=== PATIENT | female | born 1985 | race Caucasian/White ===

== ENCOUNTER 2022-09-20 08:05 | Inpatient (IN) ==
--- NOTE | 2022-09-20 08:30 | Emergency Department Note ---
History of Present Illness General Chief complaint: Groin Pain Stated complaint: CELLULITIOUS Time Seen by Provider: 09/20/22 08:15 History of Present Illness Maximum Pain Intensity: 9 Patient is a 36-year-old female with past medical history significant for ankylosing spondylitis on Cosentyx, anxiety, depression, PTSD, IBS, who returns the emergency department as advised for recheck of a suprapubic cellulitis. She was seen and evaluated by myself yesterday. She was evaluated with laboratory studies and ultrasound, which showed cellulitis, but no drainable fluid collection. She was treated with ceftriaxone and discharged on cephalexin. Patient relates that since leaving the emergency department, she has continued to alternate Tylenol and ibuprofen. She had a warm compress on the area most of the evening. She woke from sleep with more severe pain earlier this morning, she rates her discomfort a 9/10 currently. She states that the area is more swollen and that it hurts to walk. She has been nauseous. She has not documented any fevers. She has not had any vomiting. She had 1 dose of cephalexin last evening. Home Medications Medication Instructions Recorded Confirmed Type cholecalciferol (vitamin D3) 25 25 mcg PO DAILY 11/04/20 09/20/22 History mcg (1,000 unit) tablet (Vitamin D3) ferrous sulfate 325 mg (65 mg 325 mg PO DAILY 11/04/20 09/20/22 History iron) tablet (iron) multivitamin 1 tab PO DAILY 11/04/20 07/19/22 History buspirone 5 mg tablet 5 mg PO TID 04/10/21 09/20/22 History albuterol sulfate 90 mcg/actuation 2 - 3 inh inhalation Q6H #18 grams 06/17/22 09/20/22 Rx aerosol inhaler dicyclomine 10 mg capsule 10 mg PO QID 06/23/22 09/20/22 History duloxetine 20 mg capsule,delayed 80 mg PO DAILY 06/23/22 09/20/22 History release famotidine 40 mg tablet 40 mg PO DAILY 06/23/22 09/20/22 History montelukast 10 mg tablet 10 mg PO DAILY 06/23/22 07/19/22 History secukinumab 150 mg/mL subcutaneous 300 mg subcut 06/23/22 07/19/22 History syringe trazodone 100 mg tablet 100 mg PO HS 06/23/22 09/20/22 History Allergies Allergy/AdvReac Type Severity Reaction Status Date / Time amoxicillin [From Augmentin] AdvReac Intermediate Unknown Verified 07/19/22 15:00 clavulanic acid AdvReac Intermediate Unknown Verified 07/19/22 15:00 [From Augmentin] vancomycin AdvReac Intermediate Red man Verified 09/20/22 10:55 syndrome Past Med/Surg History Medical History Ankylosing spondylitis Anxiety Endometriosis Fatty liver IBS (irritable bowel syndrome) PTSD (post-traumatic stress disorder) Surgical History H/O laparoscopy H/O wisdom tooth extraction Social History Smoking Status: Never smoker Hx Alcohol Use: No Hx Substance Use: Yes Prescribed Medications: Marijuana Preferred Language: Vietnamese Communication Ability: Effective Visual Impairment: No Limitations Hearing Ability: Normal Beliefs That Will Affect Care: None marital status: Current Living Situation: Family Current Living Situation Comment: with 4 children and is deployed current occupational status: disabled Feels Safe at Home: Yes Review of Systems A total of 10 systems reviewed and were otherwise negative Physical Exam Vital Signs Vital Signs - 24 hr 09/20/22 08:13 09/20/22 09:01 09/20/22 10:00 Temperature 37.3 C Temperature Source Temporal Artery Scan Pulse Rate 118 H 99 H 85 Respiratory Rate 20 25 H 18 Respiratory Effort / Characteristics Non-Labored Respiratory Depth Normal Blood Pressure 131/81 128/85 133/81 Blood Pressure Mean 97 99 98 Pulse Oximetry 96 98 97 Oxygen Delivery Method Room Air Room Air Room Air Sepsis Recent Fever Within 48 Hours No Sepsis New/Unexplained Change in Mental Status N/A Sepsis Action Taken by Nursing No Action Required PHYSICAL EXAM: Vital Signs: Reviewed Nurse's notes. Mildly tachycardic. Afebrile. CONSTITUTIONAL: Nontoxic-appearing 36-year-old female laying on the gurney in mild distress due to discomfort. She is also mildly anxious. CARDIOVASCULAR: Regular rate and rhythm. Peripheral pulses easily palpable. RESPIRATORY: Breath sounds equal and clear to auscultation. INTEGUMENTARY: Examination of the suprapubic region on the right note swelling, erythema, warmth and induration that have increased from yesterday. She is more swollen. There is more spreading erythema toward the right groin. Still no fluctuance or pointing. There is no drainage or discharge noted. No pointing. There are some palpable enlarged nodes in the right inguinal area. There is some mild erythema in the right labia, likely dependent, as there is no swelling or tenderness there. Course Course The patient was seen and assessed as above. External medical records are reviewed. Patient returns the emergency department as advised for recheck of the suprapubic cellulitis. She is reporting worsening pain and swelling. Clinically symptoms are worsening. IV lock was initiated. Laboratory studies were collected. CBC with differential, CMP, CRP, ESR, urinalysis and test were collected. Blood cultures were not repeated as these were just obtained 24 hours ago. She was hydrated with normal saline solution, and treated with morphine and Zofran IV for pain and given ceftriaxone 2 g IV. Given her escalating symptoms, I did discuss imaging with a CT scan, she was agreeable. Laboratory studies note an elevated white count at 20,000, up from 16,000 yesterday. Inflammatory markers are both markedly elevated compared to prior, ESR 51, C-reactive protein 29. No significant electrolyte abnormalities noted. Liver functions are within normal limits. Serum test is negative. Urine microscopy is clear without signs of infection. A COVID test for admitting purposes was negative. CT scan of the abdomen and pelvis with IV contrast per my interpretation and radiology report note soft tissue infiltration in the right groin extending over the right hip and the right mons pubis, consistent with cellulitis. Trace subcutaneous fluid, but no organized fluid collection seen to indicate abscess. Reactive right inguinal lymph nodes noted. No other acute intra-abdominal pathology. Case was reviewed with attending physician, Dr. Liz. Case was also discussed with ED pharmacist, Olive Jacques, for antibiotic selection. She recommended addition of Vancomycin and Flagyl, which was ordered and started in the ED. All laboratory and diagnostic imaging studies were reviewed with the patient. She reported little relief with the initial dose of IV morphine. After review of the information above and other included data, I feel the patient would benefit from inpatient care. Discussed this with her and she was in agreement. Patient was reviewed with [facility] hospitalist service, Dr. Batista, for admission. Triage Nursing notes reviewed. Vital Signs: reviewed and remarkable for mild tachycardia, otherwise within normal limits. Prior /Outside records reviewed Differential diagnosis: Cellulitis, abscess, Darron's gangrene, folliculitis, impetigo, allergic reaction, among others. Diagnostics, as interpreted by me: ECG: none Cardiac Monitoring: none Medical decision rules: none Imaging studies: CT scan of the abdomen and pelvis with IV contrast noting sup rapubic cellulitis. Administered Medications Vancomycin HCl 1,750 mg/ (Sodium Chloride) 535 mls @ 100 mls/hr IV NOW STA Stop: 09/20/22 16:09 Last Admin: 09/20/22 11:26 Dose: 100 mls/hr Documented By: FERNANDO Morphine Sulfate (Morphine Sulfate 2 Mg/Ml Carp) 2 mg IV Q4 PRN PRN Reason: Pain Stop: 10/04/22 12:44 Last Admin: 09/20/22 12:53 Dose: 2 mg Documented By: FERNANDO Discontinued Medications Sodium Chloride (Nss 1000ml) 1,000 mls @ 999 mls/hr IV .Q1H1M MACARIO Stop: 09/20/22 09:40 Last Infusion: 09/20/22 10:16 Dose: 0 mls/hr Documented By: Admin: 09/20/22 09:07 Dose: 999 mls/hr Documented By: FERNANDO Ceftriaxone Sodium (Rocephin) 2,000 mg in 70 mls @ 140 mls/hr IV NOW STA Stop: 09/20/22 09:08 Last Infusion: 09/20/22 10:16 Dose: 0 mls/hr Documented By: Admin: 09/20/22 09:10 Dose: 140 mls/hr Documented By: FERNANDO Metronidazole (Flagyl) 500 mg in 100 mls @ 100 mls/hr IV NOW STA Stop: 09/20/22 11:47 Last Infusion: 09/20/22 12:34 Dose: 0 mls/hr Documented By: Admin: 09/20/22 11:26 Dose: 100 mls/hr Documented By: FERNANDO Ioversol (Optiray 350 100ml) 88 ml IV ONCE ONE Stop: 09/20/22 09:31 Last Admin: 09/20/22 09:30 Dose: 88 ml Documented By: NAYELY Morphine Sulfate (Morphine Sulfate 4 Mg/Ml 1 Ml Carp\Vial) 4 mg IV NOW STA Stop: 09/20/22 08:40 Last Admin: 09/20/22 09:07 Dose: 4 mg Documented By: MELISSA Ondansetron HCl (Ondansetron Inj 2 Mg/Ml 2 Ml Vial) 4 mg IV NOW STA Stop: 09/20/22 08:40 Last Admin: 09/20/22 09:07 Dose: 4 mg Documented By: MELISSA Medical Decision Making Differential Diagnosis Differential diagnosis: Cellulitis, abscess, Darron's gangrene, folliculitis, impetigo, allergic reaction, among others. Medical Records Attestation: I reviewed the patient's medical records. Home Medications Current Medication List: was personally reviewed by me Laboratory Data Attestation: I reviewed the patient's lab results. 09/20/22 09:08 09/20/22 09:08 Lab Results 09/20/22 09/20/22 09/20/22 Range/Units 08:58 09:08 09:08 WBC 20.06 H (4.8-10.8) K/ul RBC 4.52 (4.20-5.40) M/uL Hgb 14.2 (12.0-16.0) g/dl Hct 42.2 (37.0-47.0) % MCV 93.4 (80.0-100.0) fL MCH 31.4 (25.0-34.0) pg MCHC 33.6 (32.0-36.0) g/dL RDW Std Deviation 44.9 (36.4-46.3) fL RDW Coeff of Genaro 13.1 (11.5-14.5) % Plt Count 234 (130-400) K/uL MPV 9.4 (9.4-12.4) fL Immature Gran % (Auto) 0.6 % Neut % (Auto) 87.3 % Lymph % (Auto) 6.1 % Trigg % (Auto) 5.1 % Eos % (Auto) 0.7 % Baso % (Auto) 0.2 % Neut # (Auto) 17.51 H (1.40-6.50) K/uL Lymph # (Auto) 1.22 (1.2-3.4) K/uL Trigg # (Auto) 1.02 H (0.11-0.59) K/uL Eos # (Auto) 0.15 (0-0.50) K/uL Baso # (Auto) 0.04 (0-0.2) K/uL Immature Gran # (Auto) 0.12 (0.01-0.20) K/uL ESR 51 H (0-20) mm/hr Sodium (136-145) mmol/L Potassium (3.5-5.1) mmol/L Chloride (98-107) mmol/L Carbon Dioxide (21-32) mmol/L Anion Gap (3-11) BUN (6-23) mg/dl Creatinine (0.6-1.2) mg/dl Est Cr Clr Drug Dosing ml/min Est GFR ( Amer) ml/min Est GFR (Non-Af Amer) ml/min BUN/Creatinine Ratio (10-20) Glucose (70-99(Fasting)) mg/dl Calcium (8.5-10.1) mg/dl Total Bilirubin (0.2-1.0) mg/dl AST (13-39) U/L ALT (7-52) U/L Alkaline Phosphatase (34-104) U/L C-Reactive Protein (0-0.5) mg/dl Total Protein (6.0-8.3) gm/dl Albumin (3.4-5.0) gm/dl Globulin (2.5-4.0) gm/dl Albumin/Globulin Ratio (0.9-2) HCG, Qual (Negative) Urine Color Urine Appearance (Clear) Urine pH (4.5-7.5) Ur Specific Sen[place] (1.000-1.030) Urine Protein (Negative) Urine Glucose (UA) (Negative) Urine Ketones (Negative) Urine Blood (Negative) Urine Nitrite (Negative) Urine Bilirubin (Negative) Urine Urobilinogen (Negative) Ur Leukocyte Esterase (Negative) SARS-CoV-2, RNA, NAAT NEGATIVE (NEGATIVE) 09/20/22 09/20/22 09/20/22 Range/Units 09:08 09:08 10:22 WBC (4.8-10.8) K/ul RBC (4.20-5.40) M/uL Hgb (12.0-16.0) g/dl Hct (37.0-47.0) % MCV (80.0-100.0) fL MCH (25.0-34.0) pg MCHC (32.0-36.0) g/dL RDW Std Deviation (36.4-46.3) fL RDW Coeff of Genaro (11.5-14.5) % Plt Count (130-400) K/uL MPV (9.4-12.4) fL Immature Gran % (Auto) % Neut % (Auto) % Lymph % (Auto) % Trigg % (Auto) % Eos % (Auto) % Baso % (Auto) % Neut # (Auto) (1.40-6.50) K/uL Lymph # (Auto) (1.2-3.4) K/uL Trigg # (Auto) (0.11-0.59) K/uL Eos # (Auto) (0-0.50) K/uL Baso # (Auto) (0-0.2) K/uL Immature Gran # (Auto) (0.01-0.20) K/uL ESR (0-20) mm/hr Sodium 135 L (136-145) mmol/L Potassium 4.0 (3.5-5.1) mmol/L Chloride 105 (98-107) mmol/L Carbon Dioxide 25 (21-32) mmol/L Anion Gap 5 (3-11) BUN 12 (6-23) mg/dl Creatinine 0.80 (0.6-1.2) mg/dl Est Cr Clr Drug Dosing 107.7 ml/min Est GFR ( Amer) 110.7 ml/min Est GFR (Non-Af Amer) 95.5 ml/min BUN/Creatinine Ratio 15.0 (10-20) Glucose 129 H (70-99(Fasting)) mg/dl Calcium 10.0 (8.5-10.1) mg/dl Total Bilirubin 1.1 H (0.2-1.0) mg/dl AST 11 L (13-39) U/L ALT 9 (7-52) U/L Alkaline Phosphatase 75 (34-104) U/L C-Reactive Protein 29.14 H (0-0.5) mg/dl Total Protein 7.6 (6.0-8.3) gm/dl Albumin 4.2 (3.4-5.0) gm/dl Globulin 3.4 (2.5-4.0) gm/dl Albumin/Globulin Ratio 1.2 (0.9-2) HCG, Qual Negative (Negative) Urine Color Yellow Urine Appearance Clear (Clear) Urine pH 6.5 (4.5-7.5) Ur Specific Sen[place] > 1.045 H (1.000-1.030) Urine Protein Negative (Negative) Urine Glucose (UA) Negative (Negative) Urine Ketones Trace H (Negative) Urine Blood Negative (Negative) Urine Nitrite Negative (Negative) Urine Bilirubin Negative (Negative) Urine Urobilinogen Negative (Negative) Ur Leukocyte Esterase Negative (Negative) SARS-CoV-2, RNA, NAAT (NEGATIVE) Imaging Data Attestation: I personally reviewed and interpreted this imaging study as follows: Radiologist's Impression: Abdomen/Pelvis CT 09/20/22 08:39 CT SCAN OF THE ABDOMEN AND PELVIS WITH IV CONTRAST CLINICAL HISTORY: Suprapubic cellulitis. COMPARISON STUDY: Abdominal CT dated 11/06/2020. TECHNIQUE: Following the IV administration of 88 cc of Optiray 350, CT scan of the abdomen and pelvis is performed from the lung bases to the proximal femora. Images are reviewed in the axial, sagittal, and coronal planes. IV contrast was administered without complication. A dose lowering technique was utilized adhering to the principles of ALARA. CT DOSE: 1094.13 mGycm FINDINGS: Lung bases: The heart is normal in size and without pericardial effusion. The lung bases are clear. Liver: The contrast-enhanced liver is normal in size, contour, and attenuation. There is no intrahepatic biliary ductal dilatation. The hepatic veins and portal veins are patent. Gallbladder: Unremarkable. Spleen: Normal in size and attenuation. Pancreas: Unremarkable. Adrenal glands: Unremarkable. Kidneys: The contrast enhanced kidneys are normal in size and without hydronephrosis. The kidneys enhance symmetrically. A retroaortic left renal vein is incidentally noted. Abdominal vasculature: The abdominal aorta is normal in course and caliber. Bowel: There is mild colonic fecal retention. No bowel obstruction is seen. The appendix is well-visualized and normal. Peritoneum: There is no intraperitoneal free air or abdominal ascites. There is a fat-containing umbilical hernia. Lymphadenopathy: None. Pelvic viscera: The bladder is decompressed and not well assessed. The uterus is normal as visualized noting an intrauterine device in place. There are bilateral ovarian follicles. Skeletal structures: No lytic or blastic lesions are seen. Soft tissues: There is soft tissue infiltration identified in the right groin extending superiorly over the right hip and inferiorly into the right mons pubis. There is trace subcutaneous fluid. No organized fluid collection is seen to indicate abscess. Prominent right humeral lymph nodes measure up to 1.6 cm in length. These are likely reactive. IMPRESSION: 1. Subcutaneous soft tissue inflammation centered in the right groin as detailed above is typical for cellulitis. No organized fluid collection is seen to indicate abscess. 2. No additional infectious or inflammatory findings are seen in the abdomen or pelvis. ACT 112: Negative or not required by law. Electronically signed by: José Andres M.D. 09/20/2022 9:48 AM MDM Narrative See ED Course. Impression & Plan Cellulitis of suprapubic region, Immunocompromised state due to drug therapy Discharge Plan Visit Data Chief Complaint: Groin Pain Stated Complaint: CELLULITIOUS ED Provider: Vinicio Liz ED Midlevel Provider: Akira Abbott Discharge Problem: Cellulitis of suprapubic region, Immunocompromised state due to drug therapy Patient Disposition: Being Evaluated by Hospitalist Discharge Instructions Interventions: ED Discharge Assessment Last Done: 09/20/22 13:49
[2022-09-20] MEDS ORDERED: cefTRIAXone SODIUM 2,000 MG/70 ML BAG IV STA (08:39)
[2022-09-20] MEDS ORDERED: ONDANSETRON INJ 2 MG/ML 2 ML VIAL IV STA (08:39)
[2022-09-20] MEDS ORDERED: MoRPHine SULFATE 4 MG/ML 1 ML CARP\\VIAL IV STA (08:39)
[2022-09-20] MEDS ORDERED: SODIUM CHLORIDE 0.9% 1000ML 1,000 ML IV SCH (08:40)
[2022-09-20 09:24] LABS: Basophils # (auto) 0.04 K/uL (0-0.2); Basophils % (auto) 0.2 %; Eosinophils # (auto) 0.15 K/uL (0-0.50); Eosinophils % (auto) 0.7 %; Hematocrit (blood only) 42.2 % (37.0-47.0); Hemoglobin 14.2 g/dl (12.0-16.0); Immature Granulocytes # (auto) 0.12 K/uL (0.01-0.20); Immature Granulocytes % (auto) 0.6 %; Lymphocytes # (auto) 1.22 K/uL (1.2-3.4); Lymphocytes % (auto) 6.1 %; Mean Corpuscular Hemoglobin 31.4 pg (25.0-34.0); Mean Corpuscular Hgb Conc 33.6 g/dL (32.0-36.0); Mean Corpuscular Volume 93.4 fL (80.0-100.0); Mean Platelet Volume 9.4 fL (9.4-12.4); Monocytes # (auto) 1.02 K/uL (0.11-0.59); Monocytes % (auto) 5.1 %; Neutrophils # (auto) 17.51 K/uL (1.40-6.50); Neutrophils % (auto) 87.3 %; Platelet Count 234 K/uL (130-400); RDW Coefficient of Variation 13.1 % (11.5-14.5); RDW Standard Deviation 44.9 fL (36.4-46.3); Red Blood Count 4.52 M/uL (4.20-5.40); White Blood Count 20.06 K/ul (4.8-10.8)
[2022-09-20] MEDS ORDERED: OPTIRAY 350 100ml IV ONE (09:30)
[2022-09-20 09:44] LABS: Albumin Globulin Ratio 1.2 (0.9-2); Albumin Level 4.2 gm/dl (3.4-5.0); Bilirubin,Total 1.1 mg/dl (0.2-1.0); C Reactive Protein 29.14 mg/dl (0-0.5); Creatinine Clr Calc Pharmacy 107.7 ml/min; Est GFR (African American) 110.7 ml/min; Est GFR (Non-African American) 95.5 ml/min; Globulin 3.4 gm/dl (2.5-4.0); Total Protein 7.6 gm/dl (6.0-8.3)
--- NOTE | 2022-09-20 09:50 | CT Scan Report ---
CT SCAN OF THE ABDOMEN AND PELVIS WITH IV CONTRAST CLINICAL HISTORY: Suprapubic cellulitis. COMPARISON STUDY: Abdominal CT dated 11/06/2020. TECHNIQUE: Following the IV administration of 88 cc of Optiray 350, CT scan of the abdomen and pelvi s is performed from the lung bases to the proximal femora. Images are reviewed in the axial, sagittal , and coronal planes. IV contrast was administered without complication. A dose lowering technique wa s utilized adhering to the principles of ALARA. CT DOSE: 1094.13 mGycm FINDINGS: Lung bases: The heart is normal in size and without pericardial effusion. The lung bases are clear. Liver: The contrast-enhanced liver is normal in size, contour, and attenuation. There is no intrahepa tic biliary ductal dilatation. The hepatic veins and portal veins are patent. Gallbladder: Unremarkable. Spleen: Normal in size and attenuation. Pancreas: Unremarkable. Adrenal glands: Unremarkable. Kidneys: The contrast enhanced kidneys are normal in size and without hydronephrosis. The kidneys enh ance symmetrically. A retroaortic left renal vein is incidentally noted. Abdominal vasculature: The abdominal aorta is normal in course and caliber. Bowel: There is mild colonic fecal retention. No bowel obstruction is seen. The appendix is well-vis ualized and normal. Peritoneum: There is no intraperitoneal free air or abdominal ascites. There is a fat-containing umbi lical hernia. Lymphadenopathy: None. Pelvic viscera: The bladder is decompressed and not well assessed. The uterus is normal as visualized noting an intrauterine device in place. There are bilateral ovarian follicles. Skeletal structures: No lytic or blastic lesions are seen. Soft tissues: There is soft tissue infiltration identified in the right groin extending superiorly ov er the right hip and inferiorly into the right mons pubis. There is trace subcutaneous fluid. No orga nized fluid collection is seen to indicate abscess. Prominent right humeral lymph nodes measure up to 1.6 cm in length. These are likely reactive. IMPRESSION: 1. Subcutaneous soft tissue inflammation centered in the right groin as detailed above is typical for cellulitis. No organized fluid collection is seen to indicate abscess. 2. No additional infectious or inflammatory findings are seen in the abdomen or pelvis. ACT 112: Negative or not required by law. Electronically signed by: José Andres M.D. 09/20/2022 9:48 AM
[2022-09-20 10:05] LABS: Pregnancy Test, Serum Negative (Negative)
--- NOTE | 2022-09-20 10:34 | History & Physical Report ---
Date of Service September 20, 2022 Assessment & Plan (1) Cellulitis of suprapubic region: Plan: Suprapubic cellulitis Patient received empiric Rocephin in ER 09/19/2022, return to for evaluation with expanding erythema, rapidly elevating white blood cell count, a nd rapidly increasing CRP Patient is with some immune compromise as she takes secukinumab for ankylosing spondylitis, generally gets infections around twice a year with no history of resistant infections to her knowledge. Had last secukinumab injection Monday (4 days prior to admission), small area she initially thought was an ingrown hair started to develop 3 days ago, and then rapidly worsened We will add adjunct Flagyl for anaerobic coverage and vancomycin. No history of Pseudomonas. Trend CRP/leukocytosis. Discussed with pharmacy Patient with history of red man reaction due to rapid Vanco push during with urgent labor, but reports that she is aware that this was a rate related transfusion reaction not a true allergy CT: Consistent with suprapubic cellulitis. No evidence of gas, deep tissue plane involvement, or abscess. CRP: 29, ESR 51, leukocytosis increasing to 20 on admission Trend daily (2) Immunocompromised state due to drug therapy: Plan: Received last injection of secukinumab 4 days ago, no additional dose due at this time and would hold while treating for active infection (3) PTSD (post-traumatic stress disorder): Plan: Reports anxiety/depression well controlled at time of admission (4) Anxiety: Plan: Continue BuSpar, duloxetine, trazodone at bedtime (5) Ankylosing spondylitis: Plan: Biologic health as noted (6) Fatty liver: Plan: No transaminitis on admission. Patient reports hereditary Gómez, avoids alcohol and follows with outpatient labs. No decompensation, no acute change in management at this time (7) IBS (irritable bowel syndrome): Plan: No acute exacerbation, no acute management at this time Plan DVT prophylaxis: Low risk, SCDs Diet: No surgical intervention planned at this time, regular diet Disposition: Medical/surgical CODE STATUS: Full code History of Present Illness Primary Care Provider: DARSHANA Salvador is a 36-year-old female with a past medical history of ankylosing spondylitis, PTSD, fatty liver, and IBS who is on secukinumab last taken on Monday who presented to the ER 1 day prior to admission with suprapubic cellulitis. Patient did prefer discharge home and asked for children, was treated with 1 dose of Rocephin with instructions to return for reevaluation 09/20. On ER reevaluation despite IV antibiotic treatment with Rocephin patient has had a rapidly increasing CRP, elevated white blood cell count, and clin ically worsening cellulitis. CT was obtained which does not show any evidence of organized fluid collection/abscess/gas. Subcutaneous tissue inflammation is centered at the right groin typical for cellulitis on CT which was performed with contrast. Based on failure to improve and clinical and biomarker worsening over 24 hours patient has been recommended for admission and treatment of worsening cellulitis failing conservative outpatient treatment. Patient is penicillin allergic and cannot tolerate Augmentin. 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 Ingrown hair next day seemed to swell up ~2cm area of redness/swelling, Monday size of first area of swelling, came in Monday as noted for treatment. 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 Has outpatient surveillance, avoids alcohol Medical History: Reviewed Medications: Reviewed. PCN allergy. "slammed through vanco during labor and had red man" Surgical History: Reviewed Allergies: Reviewed Social History: No tobacco use, no alcohol use. Code Status: Full Code Allergies Allergy/AdvReac Type Severity Reaction Status Date / Time amoxicillin [From Augmentin] AdvReac Intermediate Unknown Verified 07/19/22 15:00 clavulanic acid AdvReac Intermediate Unknown Verified 07/19/22 15:00 [From Augmentin] vancomycin AdvReac Intermediate Red man Verified 09/20/22 10:55 syndrome Home Medications Medication Instructions Recorded Confirmed Type cholecalciferol (vitamin D3) 25 25 mcg PO DAILY 11/04/20 07/19/22 History mcg (1,000 unit) tablet (Vitamin D3) ferrous sulfate 325 mg (65 mg 325 mg PO DAILY 11/04/20 07/19/22 History iron) tablet (iron) multivitamin 1 tab PO DAILY 11/04/20 07/19/22 History buspirone 5 mg tablet 5 mg PO TID 04/10/21 07/19/22 History albuterol sulfate 90 mcg/actuation 2 - 3 inh inhalation Q6H #18 grams 06/17/22 07/19/22 Rx aerosol inhaler dicyclomine 10 mg capsule 10 mg PO QID 06/23/22 07/19/22 History duloxetine 20 mg capsule,delayed 80 mg PO DAILY 06/23/22 07/19/22 History release famotidine 40 mg tablet 40 mg PO DAILY 06/23/22 07/19/22 History montelukast 10 mg tablet 10 mg PO DAILY 06/23/22 07/19/22 History secukinumab 150 mg/mL subcutaneous 300 mg subcut 06/23/22 07/19/22 History syringe trazodone 100 mg tablet 100 mg PO DAILY 06/23/22 07/19/22 History cephalexin 500 mg capsule 500 mg PO QID 10 days #40 caps 09/19/22 Rx Past Med/Surg History Medical History Ankylosing spondylitis Anxiety Endometriosis Fatty liver IBS (irritable bowel syndrome) PTSD (post-traumatic stress disorder) Surgical History H/O laparoscopy H/O wisdom tooth extraction Social History Smoking Status: Never smoker Hx Alcohol Use: No Hx Substance Use: Yes Prescribed Medications: Marijuana Preferred Language: Kinyarwanda Communication Ability: Effective Visual Impairment: No Limitations Hearing Ability: Normal Beliefs That Will Affect Care: None marital status: Current Living Situation: Family Current Living Situation Comment: with 4 children and is deployed current occupational status: disabled Feels Safe at Home: Yes Review of Systems Review of Systems: All systems reviewed & are unremarkable except as noted in HPI & below Physical Exam Physical Exam: General: A&Ox3. NAD. Cooperative. HEENT: Atraumatic, normocephalic. Vision/hearing intact Pulm: CTAB A&P. -wheezes, -rales, -rhonchi. Symmetrical chest rise. No increased work of breathing. No respiratory distress. Cardiac: RRR, -mrg. Radial pulses intact and symmetrical. Abdominal: Nontender, nondistended, soft. BS present. : Suprapubic skin with focal 8 x 8 cm area of firmness, erythema, warmth, tenderness with lateral erythema extending out an additional 7 cm with minimal underlying firmness, swelling. Area marked with surgical pen and dated/timed. No areas of fluctuance. No purulence/discharge. Prominently/exquisitely tender to palpation Extremities: Warm, dry, no edema Results & Data Results & Data ([facility]) Vital Signs (Past 12 Hours) Vital Signs Temp Pulse Resp BP Pulse Ox O2 Del Method 09/20/22 10:00 85 18 133/81 97 Room Air 09/20/22 09:01 99 H 25 H 128/85 98 Room Air 09/20/22 08:13 37.3 C 118 H 20 131/81 96 Room Air PG Care Time/CCT Total # of Minutes Spent Total Time Spent with Patient: Total time spent is greater than 50% in coordination of care (as documented) at patient's floor/unit and/or counseling patient: Coding Level of Care Code 50911 INT INP/OBS CARE 2/55MIN Diagnoses Cellulitis of suprapubic region L03.319 Immunocompromised state due to drug therapy D84.821; Z79.899 PTSD (post-traumatic stress disorder) F43.10 Anxiety F41.9 Ankylosing spondylitis M45.9 Fatty liver K76.0 IBS (irritable bowel syndrome) K58.9
[2022-09-20 10:39] LABS: Appearance Urine Clear (Clear); Bilirubin Urine Negative (Negative); Blood Urine Negative (Negative); Color Urine Yellow; Glucose Urine UA Negative (Negative); Ketones Urine Trace (Negative); Leukocyte Esterase Urine Negative (Negative); Nitrite Urine Negative (Negative); Protein Urine Negative (Negative); Specific Gravity Urine > 1.045 (1.000-1.030); Urobilinogen Urine Negative (Negative); pH Urine 6.5 (4.5-7.5)
[2022-09-20] MEDS ORDERED: metroNIDAZOLE 500 MG/100 ML BAG IV STA (10:48)
[2022-09-20] MEDS ORDERED: VANCOMYCIN HCL 1,750 MG in SODIUM CHLORIDE 0.9% 500 ML IV STA (10:49)
[2022-09-20] MEDS: MoRPHine SULFATE 2 MG/ML CARP IV PRN ×2 (12:53→18:13)
[2022-09-20] MEDS ORDERED: ALBUTEROL HFA 8 GM INHALER INH PRN (13:48)
[2022-09-20] MEDS ORDERED: VANCOMYCIN CONSULT ACTIVE PRN (13:48)
[2022-09-20] MEDS ORDERED: ACETAMINOPHEN 325 MG TAB PO PRN (13:48)
[2022-09-20] MEDS ORDERED: IBUPROFEN 200 MG TAB PO PRN (13:48)
--- NOTE | 2022-09-20 14:37 | Pharmacy Report ---
Pharmacy Vanc AUC Short Note - Date of Service September 20, 2022 - Assessment & Plan Assessment * 36 year old F receiving VANCOMYCIN + CEFTRIAXONE + METRONIDAZOLE for treatment of suprapubic cellulitis (without abscess). * Pertinent microbiologic data includes: BLCXs x 2 pending * Patient reported to be immunocompromised due to use of secukinumab for ankylosing spondylitis. No prior h/o of MRSA or pseudomonas colonization or infection. Plan Vancomycin * History of histamine/flushing reaction to rapid infusion of vancomycin in the past * AUC/ISHA is the preferred PK/PD target for vancomycin * AUC guided dosing is effective and associated with decreased risk of nephrotoxicity compared to traditional trough targets * 1750mg IV load x 1, followed by maint dose of 1250mg IV Q 12 hrs * This main dose is predicted to achieve target AUC/ISHA of 400-600 mg/L.hr and may be associated with a ~10 % risk of nephrotoxicity * Will check trough level with 2nd or 3rd maint dose is therapy to continue Pharmacy will continue to follow and will adjust dose/frequency as necessary. Thank you.
[2022-09-20] MEDS: busPIRone 5 MG TAB PO SCH ×2 (15:45→22:26)
[2022-09-20] MEDS: DICYCLOMINE HCL 10 MG CAP PO SCH ×3 (15:45→22:27)
[2022-09-20] MEDS ORDERED: HYDROmorphone INJ 0.5 MG/0.5 ML SYR IV STA (18:55)
[2022-09-20] MEDS ORDERED: oxyCODONE HCL IR 5 MG TAB (IMMEDIATE RELEASE) PO STA (21:48)
[2022-09-20] MEDS: metroNIDAZOLE 500 MG/100 ML BAG IV SCH (22:00)
[2022-09-20] MEDS: VANCOMYCIN HCL 1,250 MG in SODIUM CHLORIDE 0.9% 250 ML IV SCH (22:19)
[2022-09-20] MEDS: traZODone HCL 100 MG TAB PO SCH (22:27)
[2022-09-20] MEDS: DULoxetine HCL 20 MG CAP PO SCH (22:28)
[2022-09-20] MEDS ORDERED: VANCOMYCIN HCL 1,500 MG in SODIUM CHLORIDE 0.9% 500 ML IV SCH (23:30)
[2022-09-21] MEDS: metroNIDAZOLE 500 MG/100 ML BAG IV SCH ×3 (03:32→20:55)
[2022-09-21] MEDS: MoRPHine SULFATE 2 MG/ML CARP IV PRN ×5 (03:35→21:34)
--- NOTE | 2022-09-21 07:21 | Hospitalist Progress Note ---
Date of Service September 21, 2022 Assessment & Plan (1) Cellulitis of suprapubic region: Plan: acute moderate risk Suprapubic cellulitis Patient received empiric Rocephin in ER 09/19/2022, return 09/20/22 for evaluation with expanding erythema, rapidly elevating white blood cell count, and rapidly increasing CRP Patient is with some immune compromise as she takes secukinumab for ankylosing spondylitis, generally gets infections around twice a year with no history of resistant infections to her knowledge. Had last secukinumab injection 09/16/22 Flagyl and vancomycin. No history of Pseudomonas. Did have staph infection in the past which was resistant to clindamycin CT: Consistent with suprapubic cellulitis. No evidence of gas, deep tissue plane involvement, or abscess. Soft tissue ultrasound on 09/21 again without abscess formation (2) Immunocompromised state due to drug therapy: Plan: chronic and stable, treatment for ankylosing spondylitis Received last injection of secukinumab 4 days prior to admission, no additional dose due at this time and would hold while treating for active infection (3) PTSD (post-traumatic stress disorder): Plan: Reports anxiety/depression well controlled at time of admission (4) Anxiety: Plan: Continue BuSpar, duloxetine, trazodone at bedtime Plan DVT prophylaxis: Low risk, SCDs CODE STATUS: Full code Admission and Anticipated Discharge Date Admission Date: September 20, 2022 Subjective Patient's had some interval improvement in her discomfort however has more of a focus swelling with concern for abscess formation this was later not proven by ultrasound report. She does feel better Physical Exam Physical Exam: Examination shows her to have erythema in the mons pubic area with more light tender indurated area towards the right side. This is approximately 6 x 3 cm of induration and surrounding cellulitic change Results & Data Results & Data ([facility]) Vital Signs (Past 12 Hours) Vital Signs Temp Pulse Pulse Resp BP Pulse Ox O2 Del Method 09/20/22 22:30 Room Air 09/20/22 22:30 Room Air 09/20/22 19:40 97.9 F 88 18 141/89 H 97 Room Air 09/20/22 19:22 95 H 97 Room Air Laboratory Results Reviewed CBC Reviewed chemistry Diagnostic Findings Ultrasound of soft tissue did not confirm any loculations or abscess formation PG Care Time/CCT Total # of Minutes Spent Total Time Spent with Patient: Total time spent is greater than 50% in coordination of care (as documented) at patient's floor/unit and/or counseling patient: Coding Level of Care Code 97302 SUB INP/OBS CARE MIN Diagnoses Cellulitis of suprapubic region L03.319 Immunocompromised state due to drug therapy D84.821; Z79.899 PTSD (post-traumatic stress disorder) F43.10 Anxiety F41.9
[2022-09-21] MEDS: VANCOMYCIN HCL 1,250 MG in SODIUM CHLORIDE 0.9% 250 ML IV SCH ×2 (07:56→20:55)
[2022-09-21] MEDS: DICYCLOMINE HCL 10 MG CAP PO SCH ×4 (08:02→21:29)
[2022-09-21] MEDS: busPIRone 5 MG TAB PO SCH ×3 (08:02→21:28)
[2022-09-21] MEDS: FAMOTIDINE 40 MG TABLET PO SCH (08:03)
[2022-09-21] MEDS: CHOLECALCIFEROL 1,000 UNITS 25 MCG TAB PO SCH (08:03)
[2022-09-21] MEDS: MONTELUKAST SODIUM 10 MG TABLET PO SCH (08:03)
[2022-09-21] MEDS ORDERED: DULoxetine HCL 20 MG CAP PO SCH (09:00)
[2022-09-21] MEDS ORDERED: ACETAMINOPHEN 500 MG TAB PO PRN (10:43)
[2022-09-21] MEDS: oxyCODONE HCL IR 5 MG TAB (IMMEDIATE RELEASE) PO PRN ×2 (11:24→18:46)
[2022-09-21 11:30] LABS: Basophils # (auto) 0.06 K/uL (0-0.2); Basophils % (auto) 0.5 %; Eosinophils % (auto) 2.3 %; Hematocrit (blood only) 36.4 % (37.0-47.0); Hemoglobin 12.1 g/dl (12.0-16.0); Immature Granulocytes # (auto) 0.05 K/uL (0.01-0.20); Immature Granulocytes % (auto) 0.4 %; Lymphocytes # (auto) 1.67 K/uL (1.2-3.4); Mean Corpuscular Hemoglobin 31.2 pg (25.0-34.0); Mean Corpuscular Hgb Conc 33.2 g/dL (32.0-36.0); Mean Corpuscular Volume 93.8 fL (80.0-100.0); Mean Platelet Volume 9.3 fL (9.4-12.4); Monocytes # (auto) 0.81 K/uL (0.11-0.59); Monocytes % (auto) 6.3 %; Neutrophils # (auto) 9.97 K/uL (1.40-6.50); Neutrophils % (auto) 77.5 %; Platelet Count 219 K/uL (130-400); RDW Standard Deviation 44.3 fL (36.4-46.3); Red Blood Count 3.88 M/uL (4.20-5.40); White Blood Count 12.86 K/ul (4.8-10.8)
[2022-09-21] MEDS: cefTRIAXone SODIUM 2,000 MG in DEXTROSE 5% 50 ML IV SCH (11:50)
--- NOTE | 2022-09-21 12:05 | Ultrasound Report ---
US soft tissue groin CLINICAL HISTORY: suprapubic swelling eval for drainable collection COMPARISON STUDY: Abdomen and pelvis CT 09/20/2022. Abdominal ultrasound 09/19/2022. FINDINGS: Progressive subcutaneous edema within the right suprapubic/groin soft tissues compared the prior study. No loculated fluid collections to suggest an abscess at this time. Mild right inguinal l ymphadenopathy is again noted. Echogenic subcutaneous fat consistent with a cellulitis. IMPRESSION: Progressive subcutaneous edema within the right suprapubic/groin soft tissues. No locula fili fluid collections to suggest an abscess at this time. ACT 112: Negative or not required by law. Electronically signed by: Daniel Mcclelland M.D. 09/21/2022 12:03 PM
[2022-09-21 12:11] LABS: BUN Creatinine Ratio 9.3 (10-20); Creatinine Clr Calc Pharmacy 114.6 ml/min; Est GFR (African American) 119.7 ml/min; Est GFR (Non-African American) 103.3 ml/min; Potassium 3.6 mmol/L (3.5-5.1)
[2022-09-21] MEDS: DOCUSATE SODIUM/SENNA 50/8.6MG TAB PO SCH (21:30)
[2022-09-21] MEDS: traZODone HCL 100 MG TAB PO SCH (21:31)
[2022-09-21] MEDS: DULoxetine HCL 20 MG CAP PO SCH (22:51)
[2022-09-22] MEDS: oxyCODONE HCL IR 5 MG TAB (IMMEDIATE RELEASE) PO PRN ×3 (03:46→19:36)
[2022-09-22] MEDS: metroNIDAZOLE 500 MG/100 ML BAG IV SCH ×2 (04:05→11:36)
[2022-09-22] MEDS ORDERED: VANCOMYCIN LEVEL ONE (07:00)
[2022-09-22 07:14] LABS: Hemoglobin 12.9 g/dl (12.0-16.0); Mean Corpuscular Hemoglobin 31.6 pg (25.0-34.0); Mean Corpuscular Hgb Conc 33.9 g/dL (32.0-36.0); Mean Corpuscular Volume 93.1 fL (80.0-100.0); Mean Platelet Volume 9.1 fL (9.4-12.4); Platelet Count 231 K/uL (130-400); RDW Coefficient of Variation 12.9 % (11.5-14.5); RDW Standard Deviation 44.6 fL (36.4-46.3); Red Blood Count 4.08 M/uL (4.20-5.40); White Blood Count 10.49 K/ul (4.8-10.8)
[2022-09-22 08:06] LABS: Creatinine Clr Calc Pharmacy 134.3 ml/min; Est GFR (Non-African American) 115.6 ml/min
[2022-09-22] MEDS: VANCOMYCIN HCL 1,250 MG in SODIUM CHLORIDE 0.9% 250 ML IV SCH ×3 (08:35→23:39)
[2022-09-22] MEDS: busPIRone 5 MG TAB PO SCH ×3 (08:36→19:37)
[2022-09-22] MEDS: DICYCLOMINE HCL 10 MG CAP PO SCH ×4 (08:36→19:37)
[2022-09-22] MEDS: CHOLECALCIFEROL 1,000 UNITS 25 MCG TAB PO SCH (08:36)
[2022-09-22] MEDS: DOCUSATE SODIUM/SENNA 50/8.6MG TAB PO SCH ×2 (08:37→19:38)
[2022-09-22] MEDS: PSYLLIUM or GUAR GUM FIBER POWDER PACKET PO SCH (08:37)
[2022-09-22] MEDS: MONTELUKAST SODIUM 10 MG TABLET PO SCH (08:37)
[2022-09-22] MEDS: FAMOTIDINE 40 MG TABLET PO SCH (08:37)
[2022-09-22] MEDS: cefTRIAXone SODIUM 2,000 MG in DEXTROSE 5% 50 ML IV SCH (12:31)
--- NOTE | 2022-09-22 12:37 | Pharmacy Report ---
Pharmacy PK ABX Note - Date of Service September 22, 2022 - Assessment and Plan Assessment 36 year old F receiving Vancomycin for treatment of SSTI. Pertinent microbiologic data includes: hx of MSSA in genital cx. Patient also receiving ceftriaxone and metronidazole. Day # 3 of antimicrobial therapy. Plan Vancomycin * Today's level of 7.4 is subtherapeutic. * Increase Maintenance dose: 1250 mg IV every 8 hours * Regimen is predicted to achieve target AUC/ISHA of 400-600 mg/L.hr * Random level ordered for: 09/23/22@1400 Pharmacy will continue to follow and will adjust dose/frequency as necessary. Thank you. Pharmacy has transitioned to AUC monitoring for vancomycin. AUC/ISHA is the preferred PK/PD target and is associated with decreased risk of nephrotoxicity compared to traditional trough targets.
[2022-09-22] MEDS: MoRPHine SULFATE 2 MG/ML CARP IV PRN ×2 (16:32→23:39)
[2022-09-22] MEDS ORDERED: LIDOCAINE 2% 20 MG/ML 5 ML SYR IV ONE (17:58)
[2022-09-22] MEDS ORDERED: LIDOCAINE 2% 2 ML VIAL/AMP(20MG/ML) INFIL ONE (18:01)
--- NOTE | 2022-09-22 18:23 | Surgery Consultation ---
Date of Consultation September 22, 2022 Assessment & Plan (1) Cellulitis of suprapubic region: Area of fluctuance underwent incision and drainage at the bedside using 2% plain lidocaine See dictated note Placed some gauze within the area We did recover some serous fluid Area was cultured We will change dressing with quarter inch ribbon gauze every shift to keep the skin open History of Present Illness Attending Physician: Yovani Pastor History of Present Illness 36-year-old female admitted to the hospital with cellulitis of the right suprapubic area Currently on IV antibiotics and did develop some drainage over the last 12 hours She was admitted on 09/20/2022 Her white blood cell count has come down to normal Her antibiotics include vancomycin Flagyl ceftriaxone She is mildly immunocompromised for treatment for ankylosing spondylitis Allergies Allergy/AdvReac Type Severity Reaction Status Date / Time amoxicillin [From Augmentin] AdvReac Intermediate Unknown Verified 07/19/22 15:00 clavulanic acid AdvReac Intermediate Unknown Verified 07/19/22 15:00 [From Augmentin] vancomycin AdvReac Intermediate Red man Verified 09/20/22 10:55 syndrome Home Medications Medication Instructions Recorded Confirmed Type cholecalciferol (vitamin D3) 25 25 mcg PO DAILY 11/04/20 09/20/22 History mcg (1,000 unit) tablet (Vitamin D3) ferrous sulfate 325 mg (65 mg 325 mg PO DAILY 11/04/20 09/20/22 History iron) tablet (iron) multivitamin 1 tab PO DAILY 11/04/20 09/21/22 History buspirone 5 mg tablet 5 mg PO TID 04/10/21 09/20/22 History albuterol sulfate 90 mcg/actuation 2 - 3 inh inhalation Q6H #18 grams 06/17/22 09/20/22 Rx aerosol inhaler dicyclomine 10 mg capsule 10 mg PO QID 06/23/22 09/20/22 History duloxetine 20 mg capsule,delayed 80 mg PO DAILY 06/23/22 09/20/22 History release famotidine 40 mg tablet 40 mg PO DAILY 06/23/22 09/20/22 History montelukast 10 mg tablet 10 mg PO DAILY 06/23/22 09/21/22 History secukinumab 150 mg/mL subcutaneous 300 mg subcut Q1-2M 06/23/22 09/21/22 History syringe trazodone 100 mg tablet 100 mg PO HS 06/23/22 09/20/22 History Patient History Medical History Ankylosing spondylitis Anxiety Endometriosis Fatty liver IBS (irritable bowel syndrome) PTSD (post-traumatic stress disorder) Surgical History H/O laparoscopy H/O wisdom tooth extraction Social History Smoking Status: Never smoker Second Hand Exposure: No; Do You Dip or Chew Tobacco: No; Tobacco Cessation Education Requested by Patient: No Hx Alcohol Use: No Hx Substance Use: Yes (Medicinal, use the dropper.) Prescribed Medications: Marijuana Last Used Substance: Days (ago) Last Used Substance Other:: Yesterday before bed. Used to help sleep. Preferred Language: Guamanian Communication Ability: Effective Visual Impairment: No Limitations Hearing Ability: Normal Sort Manager Required: No Beliefs That Will Affect Care: None marital status: Current Living Situation: Family Current Living Situation Comment: Home with family. current occupational status: disabled Other Information That Helps Us Care for You: No Feels Safe at Home: Yes Safety Concerns: Feels Safe At This Time Assistive Devices: None Assistive Devices Comment: At home Review of Systems Review of Systems: All systems reviewed & are unremarkable except as noted in HPI & below Physical Exam Physical Exam: She does have an area of erythema in the right suprapubic area extending to the right inguinal area This has significantly improved with the markings on the skin but she does have a small area of drainage and an Area of fluctuance to the right of this-very tender Constitutional: well developed; no acute distress Eyes: + anicteric sclerae Respiratory: normal respiratory effort; no respiratory distress Cardiovascular: Rate/Rhythm: regular rate Gastrointestinal (Abdomen): See above Musculoskeletal: Head/Neck/Chest: head atraumatic Skin: no rashes, warm and dry See skin changes above Neurologic: awake Psychiatric: Orientation: alert Results & Data ([facility]) Vital Signs (Past 12 Hours) Vital Signs Temp Pulse Resp BP Pulse Ox O2 Del Method 09/22/22 15:16 36.6 C 86 18 127/85 97 Room Air 09/22/22 07:29 36.6 C 90 18 116/79 97 Room Air PG Care Time/CCT Total # of Minutes Spent Total Time Spent with Patient: Total time spent is greater than 50% in coordination of care (as documented) at patient's floor/unit and/or counseling patient: Coding Level of Care Code INP/OBS CONSULT LVL 2, 35 MIN Diagnoses Cellulitis of suprapubic region L03.319
[2022-09-22] MEDS ORDERED: clonazePAM 0.5 MG TAB PO STA (18:35)
--- NOTE | 2022-09-22 19:25 | Operative Report (OR) ---
This is a procedure at the bedside. NAME OF OPERATION: Incision and drainage of abscess. PREOPERATIVE DIAGNOSIS: Suprapubic abscess. POSTOPERATIVE DIAGNOSIS: Suprapubic abscess. STAFF SURGEON: Deondre Roy MD. ANESTHESIA: 2% plain lidocaine. DESCRIPTION OF PROCEDURE: The patient was in her bed. We prepped her suprapubic area with Betadine. I used a very small amount, less than 2 mL of 2% lidocaine to anesthetize the skin and subcutaneous tissue. I then opened the area using an 11 blade, approximately 2 cm. We did encounter some serous fluid and a small cavity. This was cultured and then packed with gauze. Dressing was applied. The patient tolerated well. It is likely we used 1 mL of 2% plain lidocaine. Job ID: [id number]
[2022-09-22] MEDS: DULoxetine HCL 20 MG CAP PO SCH (19:38)
[2022-09-22] MEDS: traZODone HCL 100 MG TAB PO SCH (19:39)
--- NOTE | 2022-09-22 20:49 | Hospitalist Progress Note ---
Date of Service September 22, 2022 Assessment & Plan (1) Cellulitis of suprapubic region: Plan: acute moderate risk Suprapubic cellulitis Patient received empiric Rocephin in ER 09/19/2022, return 09/20/22 for evaluation with expanding erythema, rapidly elevating white blood cell count, and rapidly increasing CRP Patient is with some immune compromise as she takes secukinumab for ankylosing spondylitis, generally gets infections around twice a year with no history of resistant infections to her knowledge. Had last secukinumab injection 09/16/22 Flagyl and vancomycin. No history of Pseudomonas. Did have staph infection in the past which was resistant to clindamycin CT: Consistent with suprapubic cellulitis. No evidence of gas, deep tissue plane involvement, or abscess. Soft tissue ultrasound on 09/21 again without abscess formation Given that clinically there appears to be an induration, will consult general surgery. (2) Immunocompromised state due to drug therapy: Plan: chronic and stable, treatment for ankylosing spondylitis Received last injection of secukinumab 4 days prior to admission, no additional dose due at this time and would hold while treating for active infection (3) PTSD (post-traumatic stress disorder): Plan: Reports anxiety/depression well controlled at time of admission (4) Anxiety: Plan: Continue BuSpar, duloxetine, trazodone at bedtime Plan DVT prophylaxis: Low risk, SCDs CODE STATUS: Full code Admission and Anticipated Discharge Date Admission Date: September 20, 2022 Subjective Patient reports her cellulitis has improved Review of Systems Review of Systems: All systems reviewed & are unremarkable except as noted in HPI & below Physical Exam Physical Exam: Examination shows her to have erythema in the mons pubic area with more light tender indurated area towards the right side. This is approximately 6 x 3 cm of induration and surrounding cellulitic change. (No change on 09/22 Results & Data Results & Data ([facility]) Vital Signs (Past 12 Hours) Vital Signs Temp Pulse Resp BP Pulse Ox O2 Del Method 09/22/22 15:16 36.6 C 86 18 127/85 97 Room Air PG Care Time/CCT Total # of Minutes Spent Total Time Spent with Patient: Total time spent is greater than 50% in coordination of care (as documented) at patient's floor/unit and/or counseling patient: Coding Level of Care Code 03980 SUB INP/OBS CARE MIN Diagnoses Cellulitis of suprapubic region L03.319 Immunocompromised state due to drug therapy D84.821; Z79.899 PTSD (post-traumatic stress disorder) F43.10 Anxiety F41.9
[2022-09-23] MEDS: oxyCODONE HCL IR 5 MG TAB (IMMEDIATE RELEASE) PO PRN ×4 (00:57→19:40)
[2022-09-23] MEDS: VANCOMYCIN HCL 1,250 MG in SODIUM CHLORIDE 0.9% 250 ML IV SCH ×2 (08:03→16:54)
[2022-09-23] MEDS: DOCUSATE SODIUM/SENNA 50/8.6MG TAB PO SCH ×2 (08:09→19:41)
[2022-09-23] MEDS: FAMOTIDINE 40 MG TABLET PO SCH (08:09)
[2022-09-23] MEDS: MONTELUKAST SODIUM 10 MG TABLET PO SCH (08:09)
[2022-09-23] MEDS: CHOLECALCIFEROL 1,000 UNITS 25 MCG TAB PO SCH (08:09)
[2022-09-23] MEDS: DICYCLOMINE HCL 10 MG CAP PO SCH ×4 (08:10→19:41)
[2022-09-23] MEDS: busPIRone 5 MG TAB PO SCH ×3 (08:11→19:40)
[2022-09-23] MEDS: PSYLLIUM or GUAR GUM FIBER POWDER PACKET PO SCH (08:11)
[2022-09-23 08:49] LABS: BUN Creatinine Ratio 14.5 (10-20); Basophils # (auto) 0.06 K/uL (0-0.2); Basophils % (auto) 0.9 %; C Reactive Protein 8.06 mg/dl (0-0.5); Calcium 8.7 mg/dl (8.5-10.1); Creatinine Clr Calc Pharmacy 124.6 ml/min; Eosinophils # (auto) 0.35 K/uL (0-0.50); Eosinophils % (auto) 5.3 %; Est GFR (African American) 130.7 ml/min; Est GFR (Non-African American) 112.8 ml/min; Hematocrit (blood only) 38.8 % (37.0-47.0); Hemoglobin 12.9 g/dl (12.0-16.0); Immature Granulocytes # (auto) 0.03 K/uL (0.01-0.20); Immature Granulocytes % (auto) 0.5 %; Lymphocytes # (auto) 2.02 K/uL (1.2-3.4); Lymphocytes % (auto) 30.7 %; Mean Corpuscular Hemoglobin 31.3 pg (25.0-34.0); Mean Corpuscular Hgb Conc 33.2 g/dL (32.0-36.0); Mean Corpuscular Volume 94.2 fL (80.0-100.0); Mean Platelet Volume 9.4 fL (9.4-12.4); Monocytes # (auto) 0.57 K/uL (0.11-0.59); Monocytes % (auto) 8.7 %; Neutrophils # (auto) 3.54 K/uL (1.40-6.50); Neutrophils % (auto) 53.9 %; Platelet Count 271 K/uL (130-400); Potassium 3.9 mmol/L (3.5-5.1); RDW Coefficient of Variation 12.8 % (11.5-14.5); RDW Standard Deviation 44.3 fL (36.4-46.3); Red Blood Count 4.12 M/uL (4.20-5.40); White Blood Count 6.57 K/ul (4.8-10.8)
[2022-09-23] MEDS: MoRPHine SULFATE 2 MG/ML CARP IV PRN ×2 (10:10→22:47)
--- NOTE | 2022-09-23 11:10 | Surgery Progress Note ---
Date of Service September 23, 2022 Assessment & Plan (1) History of incision and drainage: Plan: Status post I&D of suprapubic abscess Cultures are pending as far as isolation of organism Continue current antibiotics as she is improving Continue wound packing Dr. Martinez will be following over the weekend Discharge home on oral antibiotics when organism isolated Admission and Anticipated Discharge Date Admission Date: September 20, 2022 Results & Data ([facility]) Vital Signs (Past 12 Hours) Vital Signs Temp Pulse Resp BP Pulse Ox O2 Del Method 09/23/22 08:05 36.5 C 74 18 115/77 98 Room Air 09/22/22 23:18 36.6 C 69 18 135/80 97 Room Air PG Care Time/CCT Total # of Minutes Spent Total Time Spent with Patient: Total time spent is greater than 50% in coordination of care (as documented) at patient's floor/unit and/or counseling patient: Coding Level of Care Code None Diagnoses History of incision and drainage Z98.890
[2022-09-23] MEDS: cefTRIAXone SODIUM 2,000 MG in DEXTROSE 5% 50 ML IV SCH (12:18)
--- NOTE | 2022-09-23 16:54 | Pharmacy Report ---
Pharmacy PK ABX Note - Date of Service September 23, 2022 - Assessment and Plan Assessment 36 year old F receiving Vancomycin for treatment of SSTI. Pertinent microbiologic data includes: hx of MSSA in genital cx. Patient also receiving ceftriaxone. S/p I&D of suprapubic abscess- groin culture (+) Staph spp. Day # 4 of antimicrobial therapy. Plan Vancomycin * Vancomycin random level drawn this afternoon, 14.8mcg/mL (~ 6.5hr level) is predicted to achieve a steady state AUC of 497mg/L.hr -- therapeutic. * Continue vancomycin 1250mg IV q8h * Regimen is predicted to achieve target AUC/ISHA of 400-600 mg/L.hr * Will repeat a level in ~ 48hr or sooner if clinically indicated Pharmacy will continue to follow and will adjust dose/frequency as necessary. Thank you. Pharmacy has transitioned to AUC monitoring for vancomycin. AUC/ISHA is the preferred PK/PD target and is associated with decreased risk of nephrotoxicity compared to traditional trough targets.
[2022-09-23] MEDS: POLYETHYLENE (MIRALAX) 17 GM PACK PO SCH (17:00)
[2022-09-23] MEDS: traZODone HCL 100 MG TAB PO SCH (19:42)
[2022-09-23] MEDS: DULoxetine HCL 20 MG CAP PO SCH (19:42)
[2022-09-23] MEDS ORDERED: GLYCERIN ADULT 12 SUPP/BOX SUPP PR ONE (20:19)
--- NOTE | 2022-09-23 21:58 | Hospitalist Progress Note ---
Date of Service September 23, 2022 Assessment & Plan (1) Cellulitis of suprapubic region: Plan: acute moderate risk Suprapubic cellulitis Patient received empiric Rocephin in ER 09/19/2022, return 09/20/22 for evaluation with expanding erythema, rapidly elevating white blood cell count, and rapidly increasing CRP Patient is with some immune compromise as she takes secukinumab for ankylosing spondylitis, generally gets infections around twice a year with no history of resistant infections to her knowledge. Had last secukinumab injection 09/16/22 Flagyl and vancomycin. No history of Pseudomonas. Did have staph infection in the past which was resistant to clindamycin CT: Consistent with suprapubic cellulitis. No evidence of gas, deep tissue plane involvement, or abscess. Soft tissue ultrasound on 09/21 again without abscess formation Appreciate input from Gen Surgery. S/P I and D Patient appears to have improved tremendously with this. Culture though is pending. Once culture comes back, patient will likely be discharged, possibly with home nursing. (2) Immunocompromised state due to drug therapy: Plan: chronic and stable, treatment for ankylosing spondylitis Received last injection of secukinumab 4 days prior to admission, no additional dose due at this time and would hold while treating for active infection (3) PTSD (post-traumatic stress disorder): Plan: Reports anxiety/depression well controlled at time of admission (4) Anxiety: Plan: Continue BuSpar, duloxetine, trazodone at bedtime Plan DVT prophylaxis: Low risk, SCDs CODE STATUS: Full code Admission and Anticipated Discharge Date Admission Date: September 20, 2022 Subjective 36 yo female reports feeling better. She has no new complaints. Review of Systems Review of Systems: All systems reviewed & are unremarkable except as noted in HPI & below Physical Exam Physical Exam: Patient is lying in bed and in no acute distress. Examination shows her to have erythema in the mons pubic area has decreased after the I and D. Area has packing and is draining clear yellow fluid. Area is no longer indurated. Results & Data Results & Data ([facility]) Vital Signs (Past 12 Hours) Vital Signs Temp Pulse Resp BP Pulse Ox O2 Del Method 09/23/22 20:57 36.8 C 76 18 113/79 96 Room Air 09/23/22 14:56 36.6 C 70 16 133/88 99 Room Air PG Care Time/CCT Total # of Minutes Spent Total Time Spent with Patient: Total time spent is greater than 50% in coordination of care (as documented) at patient's floor/unit and/or counseling patient: Coding Level of Care Code 78796 SUB INP/OBS CARE 2/35MIN Diagnoses Cellulitis of suprapubic region L03.319 Immunocompromised state due to drug therapy D84.821; Z79.899 PTSD (post-traumatic stress disorder) F43.10 Anxiety F41.9
[2022-09-24] MEDS: VANCOMYCIN HCL 1,250 MG in SODIUM CHLORIDE 0.9% 250 ML IV SCH ×2 (00:55→08:42)
[2022-09-24 05:50] LABS: Hematocrit (blood only) 39.9 % (37.0-47.0); Hemoglobin 13.5 g/dl (12.0-16.0); Mean Corpuscular Hemoglobin 31.2 pg (25.0-34.0); Mean Corpuscular Hgb Conc 33.8 g/dL (32.0-36.0); Mean Corpuscular Volume 92.1 fL (80.0-100.0); Mean Platelet Volume 9.1 fL (9.4-12.4); Platelet Count 289 K/uL (130-400); RDW Coefficient of Variation 12.5 % (11.5-14.5); RDW Standard Deviation 42.5 fL (36.4-46.3); Red Blood Count 4.33 M/uL (4.20-5.40); White Blood Count 8.24 K/ul (4.8-10.8)
[2022-09-24 06:08] LABS: Creatinine Clr Calc Pharmacy 122.8 ml/min; Est GFR (African American) 130.1 ml/min; Est GFR (Non-African American) 112.3 ml/min
[2022-09-24] MEDS: busPIRone 5 MG TAB PO SCH ×2 (08:42→14:26)
[2022-09-24] MEDS: CHOLECALCIFEROL 1,000 UNITS 25 MCG TAB PO SCH (08:42)
[2022-09-24] MEDS: POLYETHYLENE (MIRALAX) 17 GM PACK PO SCH (08:42)
[2022-09-24] MEDS: MONTELUKAST SODIUM 10 MG TABLET PO SCH (08:42)
[2022-09-24] MEDS: FAMOTIDINE 40 MG TABLET PO SCH (08:42)
[2022-09-24] MEDS: DICYCLOMINE HCL 10 MG CAP PO SCH ×2 (08:42→12:33)
[2022-09-24] MEDS: PSYLLIUM or GUAR GUM FIBER POWDER PACKET PO SCH (08:42)
[2022-09-24] MEDS: DOCUSATE SODIUM/SENNA 50/8.6MG TAB PO SCH (08:42)
[2022-09-24] MEDS: MoRPHine SULFATE 2 MG/ML CARP IV PRN (09:20)
[2022-09-24] MEDS ORDERED: ceFAZolin 2000MG 2,000 MG/15 ML SYR IV SCH (12:00)
--- NOTE | 2022-09-29 16:22 | Discharge Summary ---
Date of Service September 24, 2022 Admission HPI Per Admitting Provider Tammie is a 36-year-old female with a past medical history of ankylosing spondylitis, PTSD, fatty liver, and IBS who is on secukinumab last taken on Monday who presented to the ER 1 day prior to admission with suprapubic cellulitis. Patient did prefer discharge home and asked for children, was treated with 1 dose of Rocephin with instructions to return for reevaluation 09/20. On ER reevaluation despite IV antibiotic treatment with Rocephin patient has had a rapidly increasing CRP, elevated white blood cell count, and clinically worsening cellulitis. CT was obtained which does not show any evidence of organized fluid collection/abscess/gas. Subcutaneous tissue inflammation is centered at the right groin typical for cellulitis on CT which was performed with contrast. Based on failure to improve and clinical and biomarker worsening over 24 hours patient has been recommended for admission and treatment of worsening cellulitis failing conservative outpatient treatment. Patient is penicillin allergic and cannot tolerate Augmentin. 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 Ingrown hair next day seemed to swell up ~2cm area of redness/swelling, Monday size of first area of swelling, came in Monday as noted for treatment. 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 Has outpatient surveillance, avoids alcohol Medical History: Reviewed Medications: Reviewed. PCN allergy. "slammed through vanco during labor and had red man" Surgical History: Reviewed Allergies: Reviewed Social History: No tobacco use, no alcohol use. Code Status: Full Code Discharge Data Allergies Allergy/AdvReac Type Severity Reaction Status Date / Time amoxicillin [From Augmentin] AdvReac Intermediate Unknown Verified 07/19/22 15:00 clavulanic acid AdvReac Intermediate Unknown Verified 07/19/22 15:00 [From Augmentin] vancomycin AdvReac Intermediate Red man Verified 09/20/22 10:55 syndrome Consultations 09/20/22 10:30 ED Decision to Admit Stat 09/22/22 16:13 Consult General Surgery Routine Ordered Studies 09/20/22 08:39 CT Abd and Pelvis [CT abd pelvis IV con only] Stat 09/21/22 10:40 US soft tissue groin Routine Hospital Course (1) Cellulitis of suprapubic region: acute moderate risk Suprapubic cellulitis Patient received empiric Rocephin in ER 09/19/2022, return 09/20/22 for evaluation with expanding erythema, rapidly elevating white blood cell count, and rapidly increasing CRP Patient is with some immune compromise as she takes secukinumab for ankylosing spondylitis, generally gets infections around twice a year with no history of resistant infections to her knowledge. Had last secukinumab injection 09/16/22 Flagyl and vancomycin. No history of Pseudomonas. Did have staph infection in the past which was resistant to clindamycin CT: Consistent with suprapubic cellulitis. No evidence of gas, deep tissue plane involvement, or abscess. Soft tissue ultrasound on 09/21 again without abscess formation Appreciate input from Gen Surgery. S/P I and D Patient appears to have improved tremendously with this. Culture though is pending. Once culture comes back, patient will likely be discharged, possibly with home nursing. (2) Immunocompromised state due to drug therapy: chronic and stable, treatment for ankylosing spondylitis Received last injection of secukinumab 4 days prior to admission, no additional dose due at this time and would hold while treating for active infection (3) PTSD (post-traumatic stress disorder): Reports anxiety/depression well controlled at time of admission (4) Anxiety: Continue BuSpar, duloxetine, trazodone at bedtime Plan DVT prophylaxis: Low risk, SCDs CODE STATUS: Full code Discharge Plan Discharge Items Patient Disposition: Home - Home Health Services Reason For Visit: CELLULITIS FAILED OUTPT TX Discharge Diagnosis: cellulitis Activity: Resume your previous activity Non-emergency contact: Primary Care Provider Call non-emergency contact if: you have any medication questions Follow-up/Referrals: Deondre Roy MD, FACS [Physician] - Liliane Cho, DARSHANA [Primary Care Provider] - Diet: Regular Addtl Attending Provider Instructions: Pack your wound once daily and as needed with dry 1/4" nu gauze, cover with 4x4 gauze and medipore tape Start first dose toniight Pending Studies at Discharge: No Stand-Alone Forms: My [facility], Smoking Cessation Medications and DC Order Prescriptions: New acetaminophen [Aphen] 325 mg tablet 650 mg PO Q6H Qty: 60 0RF cephalexin 500 mg tablet 1,000 mg PO Q8H 8 Days Qty: 48 0RF Continued trazodone 100 mg tablet 100 mg PO HS secukinumab 150 mg/mL syringe 300 mg subcut Q1-2M montelukast 10 mg tablet 10 mg PO DAILY famotidine 40 mg tablet 40 mg PO DAILY dicyclomine 10 mg capsule 10 mg PO QID multivitamin Tablet 1 tab PO DAILY ferrous sulfate [iron] 325 mg (65 mg iron) Tablet 325 mg PO DAILY cholecalciferol (vitamin D3) [Vitamin D3] 25 mcg (1,000 unit) Tablet 25 mcg PO DAILY albuterol sulfate 90 mcg/actuation HFA aerosol inhaler 2 - 3 inh inhalation Q6H Qty: 18 2RF buspirone 5 mg tablet 5 mg PO TID duloxetine 20 mg capsule,delayed release(DR/EC) 80 mg PO DAILY Discharge Orders: Discharge Order (Routine); Ordered 09/24/22 Ordered By: Yovani Lucero/Other Patient Handouts: Abscess Abx Tx Admission Data Admit Date/Time: 09/20/22 11:21 Attending Provider: Yovani Pastor Admit Provider: Uday Batista Primary Care Provider: Liliaen Cho Other Providers: Uday Batista ; Deondre Roy ; [facility] Other Interventions: Discharge Summary Assessment (RN) Last Done: 09/24/22 17:42 Coding Diagnoses Cellulitis of suprapubic region L03.319 Immunocompromised state due to drug therapy D84.821; Z79.899 PTSD (post-traumatic stress disorder) F43.10 Anxiety F41.9
== END 2022-09-24 18:34 | disposition home health service (06) | DRG 603 ==
LOC: ED 08:05 → EDINP 11:21 → SUATTDRO 11:21 → 3E 19:22

== ENCOUNTER 2025-03-08 19:30 | Inpatient (IN) ==
--- NOTE | 2025-03-08 19:44 | Emergency Department Note ---
Impression & Plan Cellulitis and abscess of neck ED Provider Note CHIEF COMPLAINT: Abscess on neck HISTORY OF PRESENTING ILLNESS: This 39-year-old female patient presents to the emergency department for evaluation of an abscess to the right side of her neck. The symptoms started 1 week ago while she was in [facility] for vacation. She was not in the ocean, lakes, or ponds etc. She has a history of Hidradenitis Suppurativa and gets abscesses frequently. She started using warm compresses right away and has been using triple antibiotic ointment. About 2 days ago she took her bandaid off and it ripped part of her skin off and the infection got much worse. There has been active drainage over the past 2 days. The pain is getting worse as well. It is now painful to swallow and her voice is now hoarse. She thinks she had a fever last night, but did not have a thermometer to check. She has not been on any antibiotics since the infection started. Her tetanus shot is up to date. She is on Cosentyx for ankylosing spondylitis. She continues to follow up with rheumatology. She is not on any blood thinners. She had to be hospitalized for IV antibiotics in 2021 because an abscess got so bad. REVIEW OF SYSTEMS: See HPI for pertinent positives and pertinent negatives. ALLERGIES: Augmentin, Vancomycin MEDICATIONS: See below PAST MEDICAL HISTORY: See below PHYSICAL EXAM: Vital Signs: Vitals are noted on the nurse's note and reviewed by myself. GENERAL: Non toxic in appearance and in no acute distress. SKIN: The patient has an approximately 4 x 3 cm area of erythema to the right side of the neck with a central area of induration and central opening with intermittent discharge. No lymphatic streaking. Capillary reflex less than 2 seconds. HEAD: Normocephalic, atraumatic. EARS: Bilateral external auditory canals clear without tragus tenderness. Bilateral tympanic membranes pearly zhao without erythema or effusion. No mastoid tenderness bilaterally. EYES: Pupils equal round and reactive to light and accommodation. Conjunctivae without injection, sclerae without icterus. Extraocular movements intact. MOUTH: Mucous membranes moist. Airway patent, uvula midline. Pharynx is not erythematous and not edematous without exudate. Pharynx without postnasal drip. No evidence for peritonsillar abscess. NECK: See skin exam above. Supple without nuchal rigidity. No meningeal signs. The patient is tender to palpation over the area of the cellulitis and abscess. No cervical spine or paraspinal muscle tenderness. The patient still has full range of motion of the neck, but with increased pain around the area of the cellulitis and abscess with range of motion. HEART: Regular rate and rhythm without murmurs gallops or rubs. LUNGS: Clear to auscultation bilaterally without wheezes, rales or rhonchi. No accessory muscle use or retractions. NEURO: Patient was alert and oriented. DIFFERENTIAL DIAGNOSIS: Differential diagnosis includes cellulitis, abscess, MRSA infection, DVT, necrotizing fasciitis, dermatitis, drug eruption, allergic reaction, as well as other pathologies. ED COURSE AND MEDICAL DECISION MAKING: MEDICATIONS GIVEN: 1 L normal saline solution bolus. Toradol 10 mg IV, Tylenol 1000 mg IV. Rocephin 2 g IV and clindamycin 600 mg IV. INTERPRETATION OF LABS: I interpreted the labs with full lab results as below in the lab section of this note. Laboratory results pertinent to the emergent complaint are discussed in the MDM section below. The patient was advised to follow up with their PCP and/or specialist(s) for further outpatient monitoring and management of any abnormal results. INTERPRETATION OF IMAGING: Imaging studies were interpreted by myself and read by radiology as per the imaging section of this note. The patient was advised to follow up with their PCP and/or specialist(s) for further outpatient management of any non-emergent abnormal findings. CT scan of the soft tissue neck with IV contrast shows a small right neck abscess measuring 0.6 x 0.7 cm. The overall area of inflammatory change in the subcutaneous soft tissue measures 0.8 x 1.1 x 2.1 cm. The inflammatory change does not involve the sternocleidomastoid muscle. CHRONIC MEDICAL/SOCIAL CONDITIONS AFFECTING CARE: Hidradenitis suppurativa. Currently on Cosentyx for ankylosing spondylitis CONSULTATIONS: On-call hospitalist MDM SUMMARY: I examined the patient. The patient started with an infection to the right side of her neck 1 week ago. However, the symptoms got much worse over the past 2 days. The patient has a history of hidradenitis suppurativa and has frequent abscesses. The patient is concerned that this abscess may be extending deeper into the neck because she now has pain with swallowing and a hoarse voice. The abscess has been actively draining. The patient felt like she had a fever yesterday, but did not have a thermometer to check her temperature. The patient is on Cosentyx and states that she has had to be admitted for IV antibiotics previously for her infections. An IV lock was placed and labs were drawn. The patient was given 1 L normal saline solution bolus. She was given Toradol 10 mg IV and Tylenol 1000 mg IV for pain. White blood cell count normal at 10.53. Hemoglobin normal at 14.8. Platelet count normal at 312. CMP normal. Lactate and procalcitonin were normal. CT scan of the soft tissue neck with IV contrast shows a small right neck abscess measuring 0.6 x 0.7 cm. The overall area of inflammatory change in the subcutaneous soft tissue measures 0.8 x 1.1 x 2.1 cm. The inflammatory change does not involve the sternocleidomastoid muscle. The patient's abscess is actively draining. I was able to squeeze a small amount of additional purulent material out of the abscess. A wound culture is still pending. Blood cultures are still pending as well. I do not feel that a formal I&D in the ER is needed at this time. I discussed outpatient treatment versus admission for IV antibiotics with the patient given her biologic therapy, history of hidradenitis suppurativa, and history of needing admission for IV antibiotics. The patient states that her infection has gotten progressively worse more rapidly than normal. The patient is concerned that this infection will require IV antibiotics. Therefore, the patient will be admitted. The patient was given Rocephin 2 g IV and clindamycin 600 mg IV. I spoke with the on-call hospitalist who agreed to admit the patient for further evaluation and treatment. Please refer to their dictation for further details. The patient's care was transferred in stable condition. DIAGNOSIS: Abscess and cellulitis of the right side of the neck Past Med/Surg History Problem List (Updated 03/08/25 @ 23:57 by Emeli Lainez PA-C) Cellulitis and abscess of neck (Acute) Cervical myofascial pain syndrome Abdominal pannus Cellulitis of suprapubic region (Acute) Immunocompromised state due to drug therapy (Acute) PTSD (post-traumatic stress disorder) (Chronic) Anxiety (Chronic) Ankylosing spondylitis (Chronic) Sacroiliitis Fatty liver IBS (irritable bowel syndrome) (Chronic) Medical History Endometriosis Surgical History History of incision and drainage (09/22/22) Incision and drainage of abscess. Dr. Roy H/O wisdom tooth extraction H/O laparoscopy Social History Smoking Status: Never smoker Second Hand Exposure: No; Do You Dip or Chew Tobacco: No; Hx Alcohol Use: No Hx Substance Use: Yes (Medicinal, use the dropper.) Prescribed Medications: Marijuana Last Used Substance: Days (ago) Last Used Substance Other:: Yesterday before bed. Used to help sleep. Preferred Language: Armenian Communication Ability: Effective Visual Impairment: No Limitations Hearing Ability: Normal Trauma Registrar Required: No Beliefs That Will Affect Care: None marital status: Current Living Situation: Family Current Living Situation Comment: Home with family. current occupational status: disabled Feels Safe at Home: Yes Assistive Devices: None Allergies Allergies Allergy/AdvReac Type Severity Reaction Status Date / Time amoxicillin [From Augmentin] AdvReac Intermediate Unknown Verified 12/03/24 08:49 clavulanic acid AdvReac Intermediate Unknown Verified 12/03/24 08:49 [From Augmentin] vancomycin AdvReac Intermediate Red man Verified 12/03/24 08:49 syndrome Home Meds Home Medications Medication Instructions Recorded Confirmed secukinumab 150 mg/mL subcutaneous 300 mg subcut MONTHLY 06/23/22 03/08/25 syringe buspirone 5 mg tablet 10 mg PO TID PRN Anxiety 06/13/23 03/08/25 diclofenac sodium 1 % topical gel 1 g topical QID PRN Pain 09/28/23 03/08/25 diclofenac sodium 75 mg 75 mg PO BID PRN Pain 09/28/23 03/08/25 tablet,delayed release duloxetine 20 mg capsule,delayed 20 mg PO HS 03/08/25 03/08/25 release trazodone 50 mg tablet 50 mg PO HS 03/08/25 03/08/25 Previous Rx's Medication Instructions Recorded albuterol sulfate 90 mcg/actuation 2 - 3 inh inhalation Q6H #18 grams 11/04/22 aerosol inhaler Results & Data (ED) Vital Signs Vital Signs - 24 hr 03/08/25 19:33 03/08/25 20:31 03/08/25 22:00 Temperature 36.7 C Temperature Source Oral Pulse Rate 82 Pulse Rate [Apical] 72 71 Pulse Rhythm [Apical] Regular Pulse Strength [Apical] Normal Respiratory Rate 16 20 22 Respiratory Effort / Characteristics Non-Labored Spontaneous Non-Labored Spontaneous Non-Labored Spontaneous Respiratory Depth Normal Normal Normal Respiratory Pattern Regular Regular Regular Blood Pressure 146/100 H Blood Pressure [Left Arm] 134/89 132/89 Blood Pressure Mean 115 Blood Pressure Mean [Left Arm] 104 103 Blood Pressure Position [Left Arm] Semi-fowlers Pulse Oximetry 97 100 99 Oxygen Delivery Method Room Air Room Air Room Air Sepsis Recent Fever Within 48 Hours No Sepsis New/Unexplained Change in Mental Status N/A Sepsis Action Taken by Nursing No Action Required Laboratory Data 03/08/25 20:12 03/08/25 20:12 Lab Results 03/08/25 Range/Units 20:12 WBC 10.53 (4.8-10.8) K/ul RBC 4.73 (4.20-5.40) M/uL Hgb 14.8 (12.0-16.0) g/dl Hct 44.0 (37.0-47.0) % MCV 93.0 (80.0-100.0) fL MCH 31.3 (25.0-34.0) pg MCHC 33.6 (32.0-36.0) g/dL RDW Std Deviation 42.3 (36.4-46.3) fL RDW Coeff of Genaro 12.2 (11.5-14.5) % Plt Count 312 (130-400) K/uL MPV 9.2 L (9.4-12.4) fL Immature Gran % (Auto) 0.6 % Neut % (Auto) 62.7 % Lymph % (Auto) 25.9 % [place] % (Auto) 5.7 % Eos % (Auto) 4.4 % Baso % (Auto) 0.7 % Neut # (Auto) 6.61 H (1.40-6.50) K/uL Lymph # (Auto) 2.73 (1.20-3.40) K/uL [place] # (Auto) 0.60 H (0.11-0.59) K/uL Eos # (Auto) 0.46 (0.00-0.50) K/uL Baso # (Auto) 0.07 (0.00-0.20) K/uL Immature Gran # (Auto) 0.06 (0.01-0.20) K/uL Sodium 136 (136-145) mmol/L Potassium 3.7 (3.5-5.1) mmol/L Chloride 103 (98-107) mmol/L Carbon Dioxide 25 (21-32) mmol/L Anion Gap 8 (3-11) BUN 14 (6-23) mg/dl Creatinine 0.89 (0.6-1.2) mg/dl Est Cr Clr Drug Dosing 99.6 ml/min eGFR 85.05 BUN/Creatinine Ratio 15.7 (10-20) Glucose 92 (70-99(Fasting)) mg/dl Lactate 0.9 (0.4-2.0) mmol/L Calcium 9.4 (8.6-10.3) mg/dl Total Bilirubin 0.5 (0.2-1.0) mg/dl AST 17 (13-39) U/L ALT 12 (7-52) U/L Alkaline Phosphatase 89 (34-104) U/L Total Protein 7.8 (6.0-8.3) gm/dl Albumin 4.5 (3.4-5.0) gm/dl Globulin 3.3 (2.5-4.0) gm/dl Albumin/Globulin Ratio 1.4 (0.9-2) Procalcitonin < 0.02 (0-0.5) ng/ml Administered Medications Discontinued Medications Sodium Chloride (Nss) 1,000 mls @ 999 mls/hr IV .Q1H1M ONE Stop: 03/08/25 20:55 Last Infusion: 03/08/25 21:29 Dose: Infused Documented By: Admin: 03/08/25 20:22 Dose: 999 mls/hr Documented By: BRI Acetaminophen (Ofirmev) 1,000 mg in 100 mls @ 400 mls/hr IV NOW STA Stop: 03/08/25 22:18 Last Infusion: 03/08/25 22:31 Dose: Infused Documented By: Admin: 03/08/25 22:11 Dose: 400 mls/hr Documented By: SAIRA Ceftriaxone Sodium (Rocephin) 2,000 mg in 50 mls @ 100 mls/hr IV NOW STA Stop: 03/08/25 23:27 Last Admin: 03/08/25 23:07 Dose: 100 mls/hr Documented By: SAIRA Ioversol (Optiray 320 100ml) 90 ml IV ONCE ONE Stop: 03/08/25 21:12 Last Admin: 03/08/25 21:12 Dose: 90 ml Documented By: AVANI Ketorolac Tromethamine (Ketorolac Tromethamine 15 Mg/Ml Vial) 10 mg IV NOW ONE Stop: 03/08/25 19:56 Last Admin: 03/08/25 20:22 Dose: 10 mg Documented By: BRI Imaging Data Radiologist's Impression: Soft Tissue Neck CT 03/08/25 19:55 Exam(s): CT NECK SOFT TISSUE With Contrast IV Amt: 90 ml optiray 320 EXAM: CT Neck With Intravenous Contrast CLINICAL HISTORY: Reason for exam: Eval depth and degree of abscess R neck. TECHNIQUE: Axial computed tomography images of the neck with intravenous contrast. CTDI is 16.41 mGy and DLP is 408.67 mGy-cm. Automated exposure control was utilized for the study. A dose lowering technique was utilized adhering to the principles of ALARA. CONTRAST: Patient received 90 ml optiray 320 of IV contrast COMPARISON: No relevant prior studies available. FINDINGS: Oropharynx: Unremarkable. No significant tonsillar enlargement. No peritonsillar abscess. Hypopharynx: Unremarkable. Larynx: Unremarkable. Normal epiglottis. Trachea: Unremarkable. Retropharyngeal space: Unremarkable. Submandibular/parotid glands: Unremarkable. Glands are normal in size. Thyroid: Unremarkable. No enlarged or calcified nodules. Bones/joints: No acute fracture. Soft tissues: 0.8 x 1.1 x 2.1 cm focus of inflammatory change within the skin of the right neck which has a central nidus of hypoechogenicity measuring 0.6 x 0.7 cm. This inflammatory change and fluid extends to the anterior aspect of the sternocleidomastoid muscle but this is not involve the structure. Vasculature: No acute findings. Lymph nodes: Unremarkable. No lymphadenopathy. Lung apices: Unremarkable as visualized. IMPRESSION: Small right neck abscess measuring 0.6 x 0.7 cm. The overall area of inflammatory change in in the subcutaneous soft tissues measures 0.8 x 1. 1 x 2.1 cm Electronically signed by: Jb Mcghee MD 03/08/25 22:42 PM Discharge Plan Visit Data Chief Complaint: Skin Problem Stated Complaint: ABCESS ON NECK ED Provider: Wilman Thomas ED Midlevel Provider: Emeli Lainez Discharge Problem: Cellulitis and abscess of neck Patient Disposition: Admitted As Inpatient Condition: Fair Forms Stand Alone Forms: [facility] Prescriptions Prescriptions: No Action secukinumab 150 mg/mL syringe 300 mg subcut MONTHLY diclofenac sodium 75 mg tablet,delayed release (DR/EC) 75 mg PO BID PRN (Reason: Pain) diclofenac sodium 1 % gel 1 g topical QID PRN (Reason: Pain) albuterol sulfate 90 mcg/actuation HFA aerosol inhaler 2 - 3 inh inhalation Q6H Qty: 18 2RF buspirone 5 mg tablet 10 mg PO TID PRN (Reason: Anxiety) duloxetine 20 mg Capsule,Delayed Release(Dr/Ec) 20 mg PO HS trazodone 50 mg Tablet 50 mg PO HS Referrals Referrals: Liliane Cho PA-C [Primary Care Provider] -
[2025-03-08] MEDS: KETOROLAC TROMETHAMINE 15 MG/ML VIAL IV ONE (20:22)
[2025-03-08] MEDS: SODIUM CHLORIDE 0.9% 1,000 ML IV ONE (20:22)
[2025-03-08 20:31] LABS: Hematocrit (blood only) 44.0 % (37.0-47.0); Hemoglobin 14.8 g/dl (12.0-16.0); Immature Granulocytes # (auto) 0.06 K/uL (0.01-0.20); Immature Granulocytes % (auto) 0.6 %; Mean Corpuscular Hemoglobin 31.3 pg (25.0-34.0); Mean Corpuscular Volume 93.0 fL (80.0-100.0); Platelet Count 312 K/uL (130-400); RDW Standard Deviation 42.3 fL (36.4-46.3); Red Blood Count 4.73 M/uL (4.20-5.40); White Blood Count 10.53 K/ul (4.8-10.8)
[2025-03-08 20:50] LABS: Alanine Aminotransferase 12.0 U/L (7-52); Albumin Globulin Ratio 1.4 (0.9-2); Alkaline Phosphatase 89.0 U/L (34-104); Anion Gap 8.0 (3-11); Bilirubin,Total 0.5 mg/dl (0.2-1.0); Blood Urea Nitrogen 14.0 mg/dl (6-23); Calcium 9.4 mg/dl (8.6-10.3); Carbon Dioxide 25.0 mmol/L (21-32); Chloride 103.0 mmol/L (98-107); Creatinine Clr Calc Pharmacy 99.6 ml/min; Globulin 3.3 gm/dl (2.5-4.0); Glucose 92.0 mg/dl (70-99(Fasting)); Potassium 3.7 mmol/L (3.5-5.1); Sodium 136.0 mmol/L (136-145); Total Protein 7.8 gm/dl (6.0-8.3)
[2025-03-08] MEDS: OPTIRAY 320 100ml IV ONE (21:12)
[2025-03-08] MEDS: ACETAMINOPHEN 1,000 MG/100 ML VIAL IV STA (22:11)
--- NOTE | 2025-03-08 22:43 | CT Scan Report ---
Exam(s): CT NECK SOFT TISSUE With Contrast IV Amt: 90 ml optiray 320 EXAM: CT Neck With Intravenous Contrast CLINICAL HISTORY: Reason for exam: Eval depth and degree of abscess R neck. TECHNIQUE: Axial computed tomography images of the neck with intravenous contrast. CTDI is 16.41 mGy and DLP is 408.67 mGy-cm. Automated exposure control was utilized for the study. A dose lowering technique was utilized adhering to the principles of ALARA. CONTRAST: Patient received 90 ml optiray 320 of IV contrast COMPARISON: No relevant prior studies available. FINDINGS: Oropharynx: Unremarkable. No significant tonsillar enlargement. No peritonsillar abscess. Hypopharynx: Unremarkable. Larynx: Unremarkable. Normal epiglottis. Trachea: Unremarkable. Retropharyngeal space: Unremarkable. Submandibular/parotid glands: Unremarkable. Glands are normal in size. Thyroid: Unremarkable. No enlarged or calcified nodules. Bones/joints: No acute fracture. Soft tissues: 0.8 x 1.1 x 2.1 cm focus of inflammatory change within the skin of the right neck which has a central nidus of hypoechogenicity measuring 0.6 x 0.7 cm. This inflammatory change and fluid extends to the anterior aspect of the sternocleidomastoid muscle but this is not involve the structure. Vasculature: No acute findings. Lymph nodes: Unremarkable. No lymphadenopathy. Lung apices: Unremarkable as visualized. IMPRESSION: Small right neck abscess measuring 0.6 x 0.7 cm. The overall area of inflammatory change in in the subcutaneous soft tissues measures 0.8 x 1. 1 x 2.1 cm Electronically signed by: Jb Mcghee MD 03/08/25 22:42 PM
[2025-03-08] MEDS: cefTRIAXone SODIUM 2,000 MG/50 ML BAG IV STA (23:07)
--- NOTE | 2025-03-08 23:29 | History & Physical Report ---
Date of Service March 08, 2025 Assessment & Plan (1) Cellulitis and abscess of neck: (2) Ankylosing spondylitis: Plan 39yo female with history of Ankylosing Spondylitis on Cosentyx infusion presenting with 1 week of progressive swelling of the right neck, abscess formation which began draining today. Patient is afebrile, HD stable and non- toxic in appearance. #Cellulitis and abscess of right neck/Immunocompromised host on cosentyx infusions - patient afebrile, HD stable and non-toxic at present. No sepsis -Admit to medical -Follow cultures sent from ER - wound and blood -Warm compresses to right neck to promote abscess drainage -Tylenol and Ibuprofen PRN pain or fever -Ceftriaxone and Clindamycin -If no improvement may need repeat imaging #Anxiety/PTSD -Continue Duloxetine -Continue Buspirone History of Present Illness Chief Complaint: Right neck abscess Primary Care Provider: Liliane Cho PA-C Tammie Meza is a 39yo female with history of ankylosing spondylitis on secukinumab (Cosentyx) infusions monthly presenting from home with acute development of right neck abscess. Patient reports having a pimple on her neck noted one week ago on 03/02/25. The area became more red, swollen and tender. Over the last 24 hours there was an abscess that formed. This morning she woke with pus draining down her neck. She reports that the progression of the abscess was very rapid. She had some subjective fever, chills and sweats as well as nausea. Her neck feels full. No additional complaints at this time. In the ER she is afebrile, HD stable and nontoxic in appearance ER Course: Toradol 10mg IV NSS x 1L Tyelnol 1gm Ceftriaxone 2gm Clindamycin 600mg Allergies Allergy/AdvReac Type Severity Reaction Status Date / Time amoxicillin [From Augmentin] AdvReac Intermediate Unknown Verified 12/03/24 08:49 clavulanic acid AdvReac Intermediate Unknown Verified 12/03/24 08:49 [From Augmentin] vancomycin AdvReac Intermediate Red man Verified 12/03/24 08:49 syndrome Home Medications Medication Instructions Recorded Confirmed Type albuterol sulfate 90 mcg/actuation 2 - 3 inh inhalation Q6H #18 grams 06/17/22 03/08/25 Rx aerosol inhaler secukinumab 150 mg/mL subcutaneous 300 mg subcut MONTHLY 06/23/22 03/08/25 History syringe buspirone 5 mg tablet 10 mg PO TID PRN Anxiety 06/13/23 03/08/25 History diclofenac sodium 1 % topical gel 1 g topical QID PRN Pain 09/28/23 03/08/25 History diclofenac sodium 75 mg 75 mg PO BID PRN Pain 09/28/23 03/08/25 History tablet,delayed release duloxetine 20 mg capsule,delayed 20 mg PO HS 03/08/25 03/08/25 History release trazodone 50 mg tablet 50 mg PO HS 03/08/25 03/08/25 History Past Med/Surg History Problem List Cellulitis and abscess of neck (Acute) Cervical myofascial pain syndrome Abdominal pannus Cellulitis of suprapubic region (Acute) Immunocompromised state due to drug therapy (Acute) PTSD (post-traumatic stress disorder) (Chronic) Anxiety (Chronic) Ankylosing spondylitis (Chronic) Sacroiliitis Fatty liver IBS (irritable bowel syndrome) (Chronic) Medical History Endometriosis Surgical History History of incision and drainage (09/22/22) Incision and drainage of abscess. Dr. Roy H/O wisdom tooth extraction H/O laparoscopy Social History Smoking Status: Never smoker Second Hand Exposure: No; Do You Dip or Chew Tobacco: No; Hx Alcohol Use: Yes Hx Substance Use: No Preferred Language: [place] Communication Ability: Effective Visual Impairment: No Limitations Hearing Ability: Normal Agronomy Advisor Required: No Beliefs That Will Affect Care: None marital status: Current Living Situation: Family Current Living Situation Comment: Home with family. current occupational status: disabled Other Information That Helps Us Care for You: No Feels Safe at Home: Yes Safety Concerns: Feels Safe At This Time Assistive Devices: None Assistive Devices Comment: not at this time; cane, walker used during ankylosing spondylitis flares Review of Systems Review of Systems: All systems reviewed & are unremarkable except as noted in HPI & below Physical Exam Physical Exam: General: patient resting comfortably, NAD, non-toxic in appearance, AA&O x 4 Skin: warm, dry, intact, no rashes or lesions HEENT: NC/AT, PERRL, EOMI, anicteric sclera, conjunctiva without injection, external ear normal to inspection and nontender, nares patent, moist mucus membranes, dentition intact, no oropharyngeal lesions, neck supple, trachea midline, no LAD, no thyromegaly, no JVD Abscess on right side of neck, tender to palpation with expressible pus, tenderness to palpation on anterior cervical lymph node chains bilaterally Heart: +S1/S2, regular, no m/r/g Lungs: equal air entry bilaterally, no rales/rhonchi/wheezes Abd: +BS, soft, NT/ND, no masses/organomegaly/ascites Ext: warm, 2+ pulses in UE/LE bilaterally, no clubbing/cyanosis or edema Neuro: nonfocal, patient AA&O x 4, speech intact, no facial droop, moving all extremities on command with equal strength 5/5 Results & Data Results & Data Vital Signs (Past 12 Hours) Vital Signs Temp Pulse Pulse Resp BP BP Pulse Ox 03/08/25 22:00 71 22 132/89 99 03/08/25 20:31 72 20 134/89 100 03/08/25 19:33 36.7 C 82 16 146/100 H 97 O2 Del Method 03/08/25 22:00 Room Air 03/08/25 20:31 Room Air 03/08/25 19:33 Room Air Laboratory Results Laboratory Results WBC 10.53 K/ul (4.8-10.8) 03/08/25 20:12 RBC 4.73 M/uL (4.20-5.40) 03/08/25 20:12 Hgb 14.8 g/dl (12.0-16.0) 03/08/25 20:12 Hct 44.0 % (37.0-47.0) 03/08/25 20:12 MCV 93.0 fL (80.0-100.0) 03/08/25 20:12 MCH 31.3 pg (25.0-34.0) 03/08/25 20:12 MCHC 33.6 g/dL (32.0-36.0) 03/08/25 20:12 RDW Std Deviation 42.3 fL (36.4-46.3) 03/08/25 20:12 RDW Coeff of Genaro 12.2 % (11.5-14.5) 03/08/25 20:12 Plt Count 312 K/uL (130-400) 03/08/25 20:12 MPV 9.2 fL (9.4-12.4) L 03/08/25 20:12 Immature Gran % (Auto) 0.6 % 03/08/25 20:12 Neut % (Auto) 62.7 % 03/08/25 20:12 Lymph % (Auto) 25.9 % 03/08/25 20:12 Greenlee % (Auto) 5.7 % 03/08/25 20:12 Eos % (Auto) 4.4 % 03/08/25 20:12 Baso % (Auto) 0.7 % 03/08/25 20:12 Neut # (Auto) 6.61 K/uL (1.40-6.50) H 03/08/25 20:12 Lymph # (Auto) 2.73 K/uL (1.20-3.40) 03/08/25 20:12 Greenlee # (Auto) 0.60 K/uL (0.11-0.59) H 03/08/25 20:12 Eos # (Auto) 0.46 K/uL (0.00-0.50) 03/08/25 20:12 Baso # (Auto) 0.07 K/uL (0.00-0.20) 03/08/25 20:12 Immature Gran # (Auto) 0.06 K/uL (0.01-0.20) 03/08/25 20:12 Sodium 136 mmol/L (136-145) 03/08/25 20:12 Potassium 3.7 mmol/L (3.5-5.1) 03/08/25 20:12 Chloride 103 mmol/L (98-107) 03/08/25 20:12 Carbon Dioxide 25 mmol/L (21-32) 03/08/25 20:12 Anion Gap 8 (3-11) 03/08/25 20:12 BUN 14 mg/dl (6-23) 03/08/25 20:12 Creatinine 0.89 mg/dl (0.6-1.2) 03/08/25 20:12 Est Cr Clr Drug Dosing 99.6 ml/min 03/08/25 20:12 eGFR 85.05 03/08/25 20:12 BUN/Creatinine Ratio 15.7 (10-20) 03/08/25 20:12 Glucose 92 mg/dl (70-99(Fasting)) 03/08/25 20:12 Lactate 0.9 mmol/L (0.4-2.0) 03/08/25 20:12 Calcium 9.4 mg/dl (8.6-10.3) 03/08/25 20:12 Total Bilirubin 0.5 mg/dl (0.2-1.0) 03/08/25 20:12 AST 17 U/L (13-39) 03/08/25 20:12 ALT 12 U/L (7-52) 03/08/25 20:12 Alkaline Phosphatase 89 U/L (34-104) 03/08/25 20:12 Total Protein 7.8 gm/dl (6.0-8.3) 03/08/25 20:12 Albumin 4.5 gm/dl (3.4-5.0) 03/08/25 20:12 Globulin 3.3 gm/dl (2.5-4.0) 03/08/25 20:12 Albumin/Globulin Ratio 1.4 (0.9-2) 03/08/25 20:12 Procalcitonin < 0.02 ng/ml (0-0.5) 03/08/25 20:12 Impressions Soft Tissue Neck CT 03/08/25 19:55 Exam(s): CT NECK SOFT TISSUE With Contrast IV Amt: 90 ml optiray 320 EXAM: CT Neck With Intravenous Contrast CLINICAL HISTORY: Reason for exam: Eval depth and degree of abscess R neck. TECHNIQUE: Axial computed tomography images of the neck with intravenous contrast. CTDI is 16.41 mGy and DLP is 408.67 mGy-cm. Automated exposure control was utilized for the study. A dose lowering technique was utilized adhering to the principles of ALARA. CONTRAST: Patient received 90 ml optiray 320 of IV contrast COMPARISON: No relevant prior studies available. FINDINGS: Oropharynx: Unremarkable. No significant tonsillar enlargement. No peritonsillar abscess. Hypopharynx: Unremarkable. Larynx: Unremarkable. Normal epiglottis. Trachea: Unremarkable. Retropharyngeal space: Unremarkable. Submandibular/parotid glands: Unremarkable. Glands are normal in size. Thyroid: Unremarkable. No enlarged or calcified nodules. Bones/joints: No acute fracture. Soft tissues: 0.8 x 1.1 x 2.1 cm focus of inflammatory change within the skin of the right neck which has a central nidus of hypoechogenicity measuring 0.6 x 0.7 cm. This inflammatory change and fluid extends to the anterior aspect of the sternocleidomastoid muscle but this is not involve the structure. Vasculature: No acute findings. Lymph nodes: Unremarkable. No lymphadenopathy. Lung apices: Unremarkable as visualized. IMPRESSION: Small right neck abscess measuring 0.6 x 0.7 cm. The overall area of inflammatory change in in the subcutaneous soft tissues measures 0.8 x 1. 1 x 2.1 cm Electronically signed by: Jb Mcghee MD 03/08/25 22:42 PM Code Status & VTE Plan VTE Prophylaxis Plan VTE Prophylaxis will be ordered: Yes PG Care Time/CCT Total # of Minutes Spent Total Time Spent with Patient: Total time spent is greater than 50% in coordination of care (as documented) at patient's floor/unit and/or counseling patient: Coding Level of Care Code 12818 INT INP/OBS CARE 3/75MIN Diagnoses Cellulitis and abscess of neck L03.221; L02.11 Ankylosing spondylitis of multiple sites in spine M45.0 Ankylosing spondylitis location: multiple sites in spine (2) Ankylosing spondylitis Ankylosing spondylitis location: multiple sites in spine Qualified Code(s): M45.0 - Ankylosing spondylitis of multiple sites in spine
[2025-03-08] MEDS: CLINDAMYCIN/D5W 600 MG/50 ML BAG IV ONE (23:56)
[2025-03-09] MEDS ORDERED: ONDANSETRON INJ 2 MG/ML 2 ML VIAL IV PRN (00:50)
[2025-03-09] MEDS ORDERED: ALBUTEROL HFA 8 GM INHALER INH PRN (00:50)
[2025-03-09] MEDS ORDERED: DICLOFENAC SOD 1% GEL 100 GM TUBE EXT PRN (00:50)
[2025-03-09] MEDS: IBUPROFEN 600 MG TAB PO PRN (01:09)
[2025-03-09] MEDS: CLINDAMYCIN/D5W 600 MG/50 ML BAG IV SCH (05:44)
[2025-03-09] MEDS: ACETAMINOPHEN 325 MG TAB PO PRN (05:44)
[2025-03-09 06:06] LABS: Hematocrit (blood only) 40.8 % (37.0-47.0); Hemoglobin 13.5 g/dl (12.0-16.0); Mean Corpuscular Hemoglobin 30.6 pg (25.0-34.0); Mean Corpuscular Volume 92.5 fL (80.0-100.0); Platelet Count 247 K/uL (130-400); RDW Standard Deviation 42.8 fL (36.4-46.3); Red Blood Count 4.41 M/uL (4.20-5.40); White Blood Count 7.53 K/ul (4.8-10.8)
[2025-03-09 06:29] LABS: Anion Gap 6.0 (3-11); Blood Urea Nitrogen 20.0 mg/dl (6-23); Calcium 8.2 mg/dl (8.6-10.3); Carbon Dioxide 23.0 mmol/L (21-32); Chloride 108.0 mmol/L (98-107); Creatinine Clr Calc Pharmacy 123.3 ml/min; Glucose 103.0 mg/dl (70-99(Fasting)); Potassium 4.2 mmol/L (3.5-5.1); Sodium 137.0 mmol/L (136-145)
[2025-03-09] MEDS: ENOXAPARIN INJ 40 MG/0.4 ML SYR SQ SCH (08:52)
--- NOTE | 2025-03-09 12:28 | Hospitalist Progress Note ---
Date of Service March 09, 2025 Assessment & Plan (1) Cellulitis and abscess of neck: (2) Ankylosing spondylitis: Plan 39yo female with history of Ankylosing Spondylitis on Cosentyx infusion presenting with 1 week of progressive swelling of the right neck, abscess formation which began draining 03/08 #Cellulitis and abscess of right neck/Immunocompromised host on cosentyx infusions CT: small right neck abscess measuring 0.6x0.7cm. overall area of inflammatory change in subcutaneous soft tissues measures 0.8x1.1x2.1cm Wound cultures + for staph aureus; BC still pending Warm compress to neck to promote drainage Tylenol/ibuprofen prn for pain/fever. Rocephin dc given gm + wound culture Continue Clindamycin. #Anxiety/PTSD Continue Duloxetine Continue Buspirone DVT prophylaxis: Lovenox Code: full Admission and Anticipated Discharge Date Admission Date: March 08, 2025 Purnima Cho seen and examined this morning. She notes that her abscess is improving on her neck. She feels that it is not as red anymore. States she was on vacation when she got the pimple. She did not try to pop it. She states her abscesses typically do not form as fast as this one did. Reports vocal hoarseness. Physical Exam Constitutional: WD/WN, vitals as above Eyes: PERRL, conjunctivae normal, anicteric sclerae Neck: Abscess on right side of neck with surrounding erythema. tender to palpation with expressible pus, tenderness to palpation on anterior cervical lymph node chains bilaterally Respiratory: normal respiratory effort Neurologic: PERRL, EOMI, accommodation nl, no face palsy, no dysarthria Psychiatric: A+Ox3, euthymic affect Results & Data Results & Data Vital Signs (Past 12 Hours) Vital Signs Temp Pulse Pulse Resp BP Pulse Ox O2 Del Method 03/09/25 07:20 36.5 C 74 16 118/77 99 Room Air 03/09/25 00:45 36.7 C 76 18 134/89 98 Room Air 03/09/25 00:31 77 18 113/76 97 Room Air PG Care Time/CCT Total # of Minutes Spent Total Time Spent with Patient: Total time spent is greater than 50% in coordination of care (as documented) at patient's floor/unit and/or counseling patient: Coding Level of Care Code 58813 SUB INP/OBS CARE 2/35MIN Diagnoses Cellulitis and abscess of neck L03.221; L02.11 Ankylosing spondylitis of multiple sites in spine M45.0 Ankylosing spondylitis location: multiple sites in spine (2) Ankylosing spondylitis Ankylosing spondylitis location: multiple sites in spine Qualified Code(s): M45.0 - Ankylosing spondylitis of multiple sites in spine
[2025-03-09] MEDS: busPIRone 5 MG TAB PO PRN (15:26)
[2025-03-09 19:34] VITALS: O2SAT 97
[2025-03-09] MEDS ORDERED: cefTRIAXone SODIUM 2,000 MG/50 ML BAG IV SCH (20:00)
[2025-03-10 07:38] VITALS: BP 104/72; PULSE 63; RESP 15; TEMP 97.5
[2025-03-10 07:53] LABS: Hematocrit (blood only) 41.0 % (37.0-47.0); Hemoglobin 13.8 g/dl (12.0-16.0); Immature Granulocytes # (auto) 0.02 K/uL (0.01-0.20); Immature Granulocytes % (auto) 0.3 %; Mean Corpuscular Hemoglobin 31.6 pg (25.0-34.0); Mean Corpuscular Volume 93.8 fL (80.0-100.0); Platelet Count 269 K/uL (130-400); RDW Standard Deviation 42.4 fL (36.4-46.3); Red Blood Count 4.37 M/uL (4.20-5.40); White Blood Count 7.12 K/ul (4.8-10.8)
[2025-03-10 08:13] LABS: Anion Gap 5.0 (3-11); Blood Urea Nitrogen 14.0 mg/dl (6-23); Calcium 8.5 mg/dl (8.6-10.3); Carbon Dioxide 26.0 mmol/L (21-32); Chloride 106.0 mmol/L (98-107); Creatinine Clr Calc Pharmacy 123.3 ml/min; Glucose 103.0 mg/dl (70-99(Fasting)); Potassium 4.3 mmol/L (3.5-5.1); Sodium 137.0 mmol/L (136-145)
--- NOTE | 2025-03-10 09:43 | Discharge Summary ---
Discharge Summary Date of Service March 10, 2025 Principal Dx & Hospital Course #1 = Principal Diagnosis (1) Cellulitis and abscess of neck: (2) Ankylosing spondylitis: Plan 39yo female with history of Ankylosing Spondylitis on Cosentyx infusion presenting with 1 week of progressive swelling of the right neck, abscess formation which began draining 03/08 #Cellulitis and abscess of right neck/Immunocompromised host on cosentyx infusions CT: small right neck abscess measuring 0.6x0.7cm. overall area of inflammatory change in subcutaneous soft tissues measures 0.8x1.1x2.1cm Wound cultures + for staph aureus; BC negative @ 24 hours. CBC w/ no leukocytosis. BMP stable. Abscess drained overnight, much improved. Tylenol/ibuprofen prn for pain/fever. s/p Rocephin/Clindamycin --> discharge on Keflex QID x 5 days. --> followed up w/ PCP upon discharge in event course of abx needs to be lengthened. Hold biologic therapy until infection resolved. #Anxiety/PTSD Continue Duloxetine Continue Buspirone Discharged home 03/10 Admission HPI Per Admitting Provider Tammie Meza is a 39yo female with history of ankylosing spondylitis on secukinumab (Cosentyx) infusions monthly presenting from home with acute development of right neck abscess. Patient reports having a pimple on her neck noted one week ago on 03/02/25. The area became more red, swollen and tender. Over the last 24 hours there was an abscess that formed. This morning she woke with pus draining down her neck. She reports that the progression of the abscess was very rapid. She had some subjective fever, chills and sweats as well as nausea. Her neck feels full. No additional complaints at this time. In the ER she is afebrile, HD stable and nontoxic in appearance ER Course: Toradol 10mg IV NSS x 1L Tyelnol 1gm Ceftriaxone 2gm Clindamycin 600mg Discharge Exam Constitutional WD/WN, vitals as above Eyes PERRL, conjunctivae normal, anicteric sclerae Respiratory normal respiratory effort Skin right neck abscess decreased in size + erythema. purulent drainage noted on bandage when removed. Cleaned w/ saline & appears to be drained. Minimal tenderness to palpation. Neurologic PERRL, EOMI, accommodation nl, no face palsy, no dysarthria Psychiatric A+Ox3, euthymic affect Discharge Plan Discharge Items Patient Disposition: Home - Self-Care Reason For Visit: RIGHT SIDED NECK ABSCESS Discharge Diagnosis: Neck abscess Condition on Discharge: Fair Activity: Resume your previous activity Non-emergency contact: Primary Care Provider Call non-emergency contact if: you have any medication questions, your symptoms worsen, your pain is not controlled and you have a fever Follow-up/Referrals: Liliane Cho PA-C [Primary Care Provider] - (PCP IS THE AL. PLEASE CALL AND MAKE A HOSPITAL FOLLOW UP VISIT IN 7-10 DAYS.) Diet: Regular Addtl Attending Provider Instructions: Ms. Meza, You were recently hospitalized for a neck abscess in the right side of your neck. You were treated with IV antibiotics and had improvement of your symptoms. Please see recommendations below regarding your discharge. Please take Cephalexin four times daily for an additional 5 days. Your first dose at home will be this afternoon after picked up at the pharmacy. You may take with food to avoid GI upset. Please resume the remainder of your outpatient medications unless stated otherwise below. Please hold your secukinumab until your abscess has resolved. Please follow up with your PCP within 1-2 weeks of discharge. For your abscess: please clean with saline & keep covered until open area heals. Please change bandage daily or if bandage is saturated. Best of luck! Rama Ambrocio PA-C Pending Studies at Discharge: Yes Studies:: final results of blood cultures Stand-Alone Forms: [employer], Smoking Cessation Medications and DC Order Prescriptions: New cephalexin 500 mg tablet 500 mg PO QID 6 Days Qty: 23 0RF Continued diclofenac sodium 75 mg tablet,delayed release (DR/EC) 75 mg PO BID PRN (Reason: Pain) diclofenac sodium 1 % gel 1 g topical QID PRN (Reason: Pain) albuterol sulfate 90 mcg/actuation HFA aerosol inhaler 2 - 3 inh inhalation Q6H Qty: 18 2RF buspirone 5 mg tablet 10 mg PO TID PRN (Reason: Anxiety) duloxetine 20 mg Capsule,Delayed Release(Dr/Ec) 20 mg PO HS trazodone 50 mg Tablet 50 mg PO HS Held secukinumab 150 mg/mL syringe 300 mg subcut MONTHLY Hold Instructions: Resume on 03/21/25. until seen by PCP Discharge Orders: Discharge Order (Routine); Ordered 03/10/25 Ordered By: Rama Lucero/Other Patient Handouts: Abscess Abx Tx Admission Data Admit Date/Time: 03/08/25 23:28 Attending Provider: Sally Espitia Admit Provider: Alida Riggins Primary Care Provider: Liliane Cho Other Providers: Alida Riggins; [facility] Other Interventions: Discharge Summary Assessment (RN) Last Done: 03/10/25 09:58 Hospital Stay Data Consultations 03/08/25 22:59 ED Decision to Admit Stat Diagnostic Imagining Performed 03/08/25 19:55 CT soft tissue neck w con Stat Pending Results Patient Have Any Pending Studies at Discharge: Yes Discharge Instructions Given to Patient (Per Discharging Provider) Ms. Meza, You were recently hospitalized for a neck abscess in the right side of your neck. You were treated with IV antibiotics and had improvement of your symptoms. Please see recommendations below regarding your discharge. Please take Cephalexin four times daily for an additional 5 days. Your first dose at home will be this afternoon after picked up at the pharmacy. You may take with food to avoid GI upset. Please resume the remainder of your outpatient medications unless stated otherwise below. Please hold your secukinumab until your abscess has resolved. Please follow up with your PCP within 1-2 weeks of discharge. For your abscess: please clean with saline & keep covered until open area heals. Please change bandage daily or if bandage is saturated. Best of luck! Rama Ambrocio PA-C Total Time Total Time Spent Total Time Spent (In Minutes): 45 Total Time Includes: Examination of the Patient, Discharge Planning and Medication Reconciliation Coding Level of Care Code 01418 INP/OBS DISCH >30 MIN Diagnoses Cellulitis and abscess of neck L03.221; L02.11 Ankylosing spondylitis of multiple sites in spine M45.0 Ankylosing spondylitis location: multiple sites in spine
== END 2025-03-10 10:24 | disposition home or self-care (01) | DRG 603 ==
LOC: ED 19:30 → SUATTDRO 23:28 → 3N 23:28